=== PATIENT | female | born 1980 | race Caucasian/White ===

== ENCOUNTER 2017-08-26 20:32 | Inpatient (IN) | payer BC ==
--- NOTE | 2017-08-26 21:11 | EDM.PDOC ---
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 She states that she took ibuprofen, and her pain resolved. It recurred mildly on , 08/24/2017, then more severely on Monday, 2016. She again took ibuprofen, this time to no effect. The pain has continued. She took more ibuprofen today, again with no effect. She states that the pain is only slightly present if she remains perfectly still, worse with any movement. She has had chills, but no fever, nausea, emesis, or constipation. She reports urinary urgency, but no dysuria or frequency. She states that she has had the exact same symptoms about 3 times in the past, and has previously been diagnosed with a kidney infection. She states that she has a history of ulcerative colitis, off [facility] since April, and that she is currently experiencing non-bloody diarrhea, abdominal pain, and general fatigue. The patient does not have a PCP. Her Claims Supervisor is Dr. Esteban at the [facility] [place]. Right Flank Pain Score (Numeric/FACES): 9 - Related Data Allergies Allergy/AdvReac Type Severity Reaction Status Date / Time codeine Allergy Severe Shortness Verified 08/27/17 01:27 of Breath meloxicam Allergy Severe Hives Verified 08/27/17 01:27 Home Meds: Home Meds Mesalamine [Lialda] 2 tab PO ACDINNER 07/17/15 [History] Folic Acid 5 mg PO DAILY 11/03/15 [History] Iron Polysacch/Iron Heme Polyp [Feosol Bifera 28 mg Caplet] 28 mg PO DAILY 11/02 [History] traMADol [Ultram] 50 mg PO Q6H PRN 11/03/15 [History] . [No Known Home Meds] 08/26/17 [History] Past Medical History Gastrointestinal History: Reports: Inflammatory Bowel Disease (Ulcerative colitis) - Past Surgical History GI Surgical History: Reports: Colonoscopy Social & Family History - Family History Family Medical History: Noncontributory - Tobacco Use Smoking Status *Q: Current Every Day Smoker Years of Tobacco use: 20 Packs/Tins Daily: 1 - Recreational Drug Use Recreational Drug Use: No ED ROS GENERAL - Review of Systems Review Of Systems: ROS reveals no pertinent complaints other than HPI. ED EXAM, GENERAL - Physical Exam Exam: See Below Exam Limited By: No Limitations General Appearance: Alert, WD/WN, Mild Distress (Appears uncomfortable) Ears: Normal External Exam, Hearing Grossly Normal Nose: Normal Inspection, No Blood Throat/Mouth: Normal Inspection, Normal Lips, Normal Voice, No Airway Compromise Head: Atraumatic, Normocephalic Neck: Normal Inspection, Full Range of Motion Respiratory/Chest: No Respiratory Distress, Lungs Clear, Normal Breath Sounds, No Accessory Muscle Use Cardiovascular: Normal Peripheral Pulses, Regular Rate, Rhythm, No Gallop, No JVD, No Murmur, No Rub Peripheral Pulses: 4+: Radial (L), Radial (R) GI/Abdominal: Normal Bowel Sounds, Soft, No Organomegaly, No Distention, No Abnormal Bruit, No Mass, Tender (Minimal tenderness to palpation, generalized, non-focal) (Female) Exam: Deferred Rectal (Female) Exam: Deferred Back Exam: Normal Inspection, Full Range of Motion, CVA Tenderness (R). No: CVA Tenderness (L) Extremities: Normal Inspection, Normal Range of Motion, No Pedal Edema, Normal Capillary Refill Neurological: Alert, Oriented, Normal Cognition, No Motor/Sensory Deficits Psychiatric: Normal Affect Skin Exam: Warm, Dry, Intact, Normal Color, No Rash Course - Vital Signs Last Recorded V/S: Last Vital Signs Temp 36.6 C 08/27/17 03:23 Pulse 95 08/27/17 03:23 Resp 16 08/27/17 03:23 BP 114/61 08/27/17 03:23 Pulse Ox 99 08/27/17 03:23 - Orders/Labs/Meds Orders: Active Orders 24 hr Category Date Time Status Abdomen Pelvis wo Cont [CT] Stat Exams 08/26/17 21:18 Taken C DIFFICILE BY PCR W/NAP1 [MOLEC] Stat Lab 08/26/17 23:24 Ordered Sodium Chloride 0.9% [Normal Saline] 1,000 ml Med 08/26/17 21:30 Active IV ASDIRECTED Medication Orders Acetaminophen (Tylenol) 650 mg PO Q6H PRN PRN Reason: Pain/Fever Sodium Chloride (Normal Saline) 1,000 mls @ 150 mls/hr IV ASDIRECTED [facility] Last Admin: 08/27/17 03:20 Dose: 150 mls/hr Infusion: 08/27/17 03:20 Dose: 150 mls/hr Admin: 08/26/17 21:28 Dose: 150 mls/hr Levofloxacin/Dextrose 750 mg/ (Premix) 150 mls @ 100 mls/hr IV Q24H JASS Metronidazole 500 mg/ Premix 100 mls @ 100 mls/hr IV Q8H JASS Ketorolac Tromethamine (Toradol) 15 mg IVPUSH Q6H JASS Stop: 08/28/17 22:01 Last Admin: 08/27/17 03:21 Dose: 15 mg Temazepam (Restoril) 15 mg PO BEDTIME PRN PRN Reason: Sleep Labs: Laboratory Tests 08/26/17 08/26/17 08/26/17 Range/Units 20:52 20:52 21:24 WBC 5.82 (3.98-10.04) K/mm3 RBC 4.07 (3.98-5.22) M/mm3 Hgb 11.2 (11.2-15.7) gm/L Hct 35.4 (34.1-44.9) % MCV 87.0 (79.4-94.8) fl MCH 27.5 (25.6-32.2) pg MCHC 31.6 L (32.2-35.5) g/dl RDW Std Deviation 38.6 (36.4-46.3) fL Plt Count 379 H (182-369) K/mm3 MPV 7.6 L (9.4-12.3) fl Neutrophils % (Manual) 62 H (40-60) % Band Neutrophils % 0 (0-10) % Lymphocytes % (Manual) 31 (20-40) % Atypical Lymphs % 0 % Monocytes % (Manual) 6 (2-10) % Eosinophils % (Manual) 1 (0.7-5.8) % Basophils % (Manual) 0 L (0.1-1.2) Platelet Estimate Adequate Plt Morphology Comment Normal Poikilocytosis 1+ slight Anisocytosis 1+ slight RBC Morph Comment Not Reportable Sodium (136-145) mEq/L Potassium (3.5-5.1) mEq/L Chloride (98-107) mEq/L Carbon Dioxide (21-32) mEq/L Anion Gap (5-15) BUN (7-18) mg/dL Creatinine (0.55-1.02) mg/dL Est Cr Clr Drug Dosing mL/min Estimated GFR (MDRD) (>60) mL/min BUN/Creatinine Ratio (14-18) Glucose (74-106) mg/dL Calcium (8.5-10.1) mg/dL Total Bilirubin (0.2-1.0) mg/dL AST (15-37) U/L ALT (14-59) U/L Alkaline Phosphatase (46-116) U/L Total Protein (6.4-8.2) g/dl Albumin (3.4-5.0) g/dl Globulin gm/dL Albumin/Globulin Ratio (1-2) Urine Color Yellow (Yellow) Urine Appearance Clear (Clear) Urine pH 6.0 (5.0-8.0) Ur Specific [place] > or = 1.030 (1.005-1.030) Urine Protein 1+ H (Negative) Urine Glucose (UA) Negative (Negative) Urine Ketones Negative (Negative) Urine Occult Blood 1+ H (Negative) Urine Nitrite Negative (Negative) Urine Bilirubin Negative (Negative) Urine Urobilinogen 1.0 (0.2-1.0) Ur Leukocyte Esterase Negative (Negative) Urine RBC 0-5 (0-5) /hpf Urine WBC 0-5 (0-5) /hpf Ur Epithelial Cells 0-5 (0-5) /hpf Calcium Oxalate Crystal Moderate H (NONE) Urine Bacteria Few (FEW) /hpf Urine Mucus Few (FEW) /hpf Urine HCG, Qual Negative (NEGATIVE) 08/26/17 Range/Units 21:24 WBC (3.98-10.04) K/mm3 RBC (3.98-5.22) M/mm3 Hgb (11.2-15.7) gm/L Hct (34.1-44.9) % MCV (79.4-94.8) fl MCH (25.6-32.2) pg MCHC (32.2-35.5) g/dl RDW Std Deviation (36.4-46.3) fL Plt Count (182-369) K/mm3 MPV (9.4-12.3) fl Neutrophils % (Manual) (40-60) % Band Neutrophils % (0-10) % Lymphocytes % (Manual) (20-40) % Atypical Lymphs % % Monocytes % (Manual) (2-10) % Eosinophils % (Manual) (0.7-5.8) % Basophils % (Manual) (0.1-1.2) Platelet Estimate Plt Morphology Comment Poikilocytosis Anisocytosis RBC Morph Comment Sodium 140 (136-145) mEq/L Potassium 3.5 (3.5-5.1) mEq/L Chloride 105 (98-107) mEq/L Carbon Dioxide 26 (21-32) mEq/L Anion Gap 12.5 (5-15) BUN 9 (7-18) mg/dL Creatinine 0.9 (0.55-1.02) mg/dL Est Cr Clr Drug Dosing 73.19 mL/min Estimated GFR (MDRD) > 60 (>60) mL/min BUN/Creatinine Ratio 10.0 L (14-18) Glucose 111 H (74-106) mg/dL Calcium 8.4 L (8.5-10.1) mg/dL Total Bilirubin 0.2 (0.2-1.0) mg/dL AST 8 L (15-37) U/L ALT 11 L (14-59) U/L Alkaline Phosphatase 49 (46-116) U/L Total Protein 7.2 (6.4-8.2) g/dl Albumin 2.4 L (3.4-5.0) g/dl Globulin 4.8 gm/dL Albumin/Globulin Ratio 0.5 L (1-2) Urine Color (Yellow) Urine Appearance (Clear) Urine pH (5.0-8.0) Ur Specific [place] (1.005-1.030) Urine Protein (Negative) Urine Glucose (UA) (Negative) Urine Ketones (Negative) Urine Occult Blood (Negative) Urine Nitrite (Negative) Urine Bilirubin (Negative) Urine Urobilinogen (0.2-1.0) Ur Leukocyte Esterase (Negative) Urine RBC (0-5) /hpf Urine WBC (0-5) /hpf Ur Epithelial Cells (0-5) /hpf Calcium Oxalate Crystal (NONE) Urine Bacteria (FEW) /hpf Urine Mucus (FEW) /hpf Urine HCG, Qual (NEGATIVE) Meds: Medications Generic Name Dose Route Start Last Admin Trade Name Monica PRN Reason Stop Dose Admin Acetaminophen 650 mg 08/27/17 01:17 Tylenol PO Q6H PRN Pain/Fever Sodium Chloride 1,000 mls @ 150 mls/hr 08/26/17 21:30 08/27/17 03:20 Normal Saline IV 150 mls/hr ASDIRECTED JASS Administration Levofloxacin/Dextrose 750 mg/ 150 mls @ 100 mls/hr 08/27/17 18:00 Premix IV Q24H JASS Metronidazole 500 mg/ Premix 100 mls @ 100 mls/hr 08/27/17 08:00 IV Q8H JASS Ketorolac Tromethamine 15 mg 08/27/17 04:00 08/27/17 03:21 Toradol IVPUSH 08/28/17 22:01 15 mg Q6H JASS Administration Temazepam 15 mg 08/27/17 01:16 Restoril PO BEDTIME PRN Sleep Discontinued Medications Generic Name Dose Route Start Last Admin Trade Name Monica PRN Reason Stop Dose Admin Levofloxacin/Dextrose 750 mg/ 150 mls @ 100 mls/hr 08/26/17 23:33 08/26/17 23 :39 Premix IV 08/27/17 01:02 100 mls/hr ONETIME ONE Administration Metronidazole 500 mg/ Premix 100 mls @ 100 mls/hr 08/26/17 23:34 08/27/17 01: 07 IV 08/27/17 00:33 100 mls/hr ONETIME ONE Administration Ketorolac Tromethamine 30 mg 08/26/17 21:20 08/26/17 21:28 Toradol IVPUSH 08/26/17 21:21 30 mg ONETIME STA Administration - Re-Assessments/Exams Free Text/Narrative Re-Assessment/Exam: 08/26/17 21:13 The patient's urinalysis is a marked will for 1+ occult blood, but 0-5 RBCs. There are 0-5 WBCs, and negative leukocyte esterase and nitrites. Few bacteria are seen. This urinalysis is not consistent with a UTI. There are moderate calcium oxalate crystals noted. 08/26/17 21:19 I discussed the urinalysis results with the patient and her boyfriend. We will proceed with a CT scan of the abdomen and pelvis without contrast, to evaluate for a ureterolith. I offered pain medication, however, the patient states that she does not like the effect of narcotics, and declined. I have ordered IV Toradol. 08/26/17 22:55 CT of the abdomen and pelvis without contrast is read by [facility] as "Circumferential mucosal thickening of the colon consistent with colitis. There is pericolonic inflammatory changes and mesenteric venous congestion. Additionally, suspected fistulous tract from the proximal descending colon to the base of the cecum. The appendix does not appear dilated however there are surrounding inflammatory changes. Scattered retroperitoneal and mesenteric lymph nodes. Free fluid in the pelvis. Findings worrisome for infectious or inflammatory process. Correlate with any history of Crohn's disease." 08/26/17 23:[address] Galvez, Claims Supervisor youth care professional for Dr. Bazzi. He recommends that we admit the patient hospital. He would like us to start her on Levaquin and Flagyl. He would like us to check a stool for C. difficile, and if negative, start the patient on IV Solu-Medrol. He would like the patient to receive IV fluid, and pain management as necessary. The above was then discussed with the patient, who is amenable to being admitted to the hospital. Case then discussed with Dr. White at 23:25, who agrees to admit the patient to telemetry. The patient meets criterion for full admission. Departure - Departure Time of Disposition: 23:31 Disposition: Admitted As Inpatient 65 Condition: Fair Clinical Impression: Ulcerative colitis with fistula - Discharge Information - My Orders Last 24 Hours: My Active Orders 08/26/17 21:18 Abdomen Pelvis wo Cont [CT] Stat 08/26/17 21:30 Sodium Chloride 0.9% [Normal Saline] 1,000 ml IV ASDIRECTED 08/26/17 23:24 C DIFFICILE BY PCR W/NAP1 [MOLEC] Stat - Assessment/Plan Last 24 Hours: My Active Orders 08/26/17 21:18 Abdomen Pelvis wo Cont [CT] Stat 08/26/17 21:30 Sodium Chloride 0.9% [Normal Saline] 1,000 ml IV ASDIRECTED 08/26/17 23:24 C DIFFICILE BY PCR W/NAP1 [MOLEC] Stat
[2017-08-26] MEDS ORDERED: Ketorolac 30 MG/ML SDV IVPUSH STA (21:20)
[2017-08-26] MEDS: Sodium Chloride 0.9% 1,000 ML IV SCH (21:28)
[2017-08-26] MEDS ORDERED: Levofloxacin/Dextrose 5%-Water 750 MG in Premix Bag 1 BAG IV ONE (23:33)
[2017-08-26] MEDS ORDERED: metroNIDAZOLE/Normal Saline 500 MG in Premix Bag 1 BAG IV ONE (23:34)
[2017-08-27] MEDS ORDERED: Temazepam 15 MG Cap PO PRN (01:16)
[2017-08-27] MEDS ORDERED: Acetaminophen 325 MG Tab PO PRN (01:17)
[2017-08-27] MEDS: Sodium Chloride 0.9% 1,000 ML IV SCH ×3 (03:20→17:24)
[2017-08-27] MEDS: Ketorolac 15 MG/ML SDV IVPUSH SCH ×4 (03:21→21:13)
[2017-08-27] MEDS ORDERED: Ondansetron 4 MG/2 ML SDV IVPUSH PRN (09:06)
--- NOTE | 2017-08-27 09:08 | PCM.HP ---
H&P History of Present Illness - General Date of Service: 08/27/17 Admit Problem/Dx: Admission Diagnosis/Problem Admission Diagnosis/Problem Ulcerative colitis Source of Information: Patient, Provider History Limitations: Reports: No Limitations - History of Present Illness Initial Comments - Free Text/Narative: 37 year old female with known history of ulcerative colitis, has been having malaise, nausea without vomiting with associated abdominal pain and right sided flank pain. She has also had chills but denies a fever. She has had non bloody diarrhea for several days to weeks. Admits to increased urinary frequency. There is also a sense of urgency. She has received a dose of Levoquin 750 mg IV once in the ED, the patient will be admitted for a UC exacerbation; a UTI work up has been unremarkable, however the UC is pending. Symptom Onset Date: 08/20/17 Duration of Symptoms: Reports: Day(s):, Getting Worse Location: Reports: Abdomen, Other (right flank pain) Severity: Moderate Improves with: Reports: Medication Worsens with: Reports: None Associated Symptoms: Reports: Malaise, Nausea/Vomiting, Weakness Right Flank Pain Score (Numeric/FACES): 9 - Related Data Allergies/Adverse Reactions: Allergies Allergy/AdvReac Type Severity Reaction Status Date / Time codeine Allergy Severe Shortness Verified 08/27/17 01:27 of Breath meloxicam Allergy Severe Hives Verified 08/27/17 01:27 Home Medications: Home Meds . 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 - Past Surgical History GI Surgical History: Reports: Colonoscopy Social & Family History - Family History Family Medical History: Noncontributory - Tobacco Use Smoking Status *Q: Current Every Day Smoker Years of Tobacco use: 20 Packs/Tins Daily: 1 Used Tobacco, but Quit: No Second Hand Smoke Exposure: No - Caffeine Use Caffeine Use: Reports: Coffee, Soda Other Caffeine Use: 2 cups coffee everyday and 3 12 oz cans of pop a day - Alcohol Use Days Per Week of Alcohol Use: 0 (occasionally) - Recreational Drug Use Recreational Drug Use: No Drug Use in Last 12 Months: No Recreational Drug Type: Reports: Other (see below) H&P Review of Systems - Review of Systems: Review Of Systems: See Below General: Reports: Malaise, Weakness, Decreased Appetite HEENT: Reports: No Symptoms Pulmonary: Reports: No Symptoms Cardiovascular: Reports: No Symptoms Gastrointestinal: Reports: Abdominal Pain, Decreased Appetite, Nausea Genitourinary: Reports: Flank Pain (right) Musculoskeletal: Reports: No Symptoms Skin: Reports: No Symptoms Psychiatric: Reports: No Symptoms Neurological: Reports: No Symptoms Hematologic/Lymphatic: Reports: No Symptoms Immunologic: Reports: No Symptoms Exam - Exam Exam: See Below - Vital Signs Vital Signs: Last Vital Signs Temp 36.8 C 08/27/17 08:03 Pulse 81 08/27/17 08:03 Resp 22 H 08/27/17 08:03 BP 102/57 L 08/27/17 08:03 Pulse Ox 98 08/27/17 08:03 Weight: 70.624 kg - Exam Quality Assessment: DVT Prophylaxis General: Alert, Oriented, Cooperative HEENT: Conjunctiva Clear, EOMI, Nares Patent, Normal Nasal Septum, Pupils Equal , Pupils Reactive, PERRLA Neck: Supple, Trachea Midline Lungs: Normal Respiratory Effort Cardiovascular: Regular Rate, Regular Rhythm GI/Abdominal Exam: Normal Bowel Sounds, Soft, No Organomegaly, No Distention, Tender (difuse) (Female) Exam: Deferred Rectal (Female) Exam: Deferred Back Exam: Normal Inspection Extremities: Normal Inspection, Normal Range of Motion Skin: Warm Neurological: Cranial Nerves Intact Neuro Extensive - Mental Status: Alert, Oriented x3 Neuro Extensive - Motor, Sensory, Reflexes: CN II-XII Intact Psychiatric: Alert, Normal Affect, Normal Mood - Patient Data Lab Results Last 24 hrs: Laboratory Results - last 24 hr 08/27/17 08/27/17 Range/Units 05:59 05:59 WBC 4.84 (3.98-10.04) K/mm3 RBC 3.38 L (3.98-5.22) M/mm3 Hgb 9.3 L (11.2-15.7) gm/L Hct 29.7 L (34.1-44.9) % MCV 87.9 (79.4-94.8) fl MCH 27.5 (25.6-32.2) pg MCHC 31.3 L (32.2-35.5) g/dl RDW Std Deviation 38.9 (36.4-46.3) fL Plt Count 302 (182-369) K/mm3 MPV 7.9 L (9.4-12.3) fl Neut % (Auto) 52.3 (34.0-71.1) % Lymph % (Auto) 28.3 (19.3-51.7) % [place] % (Auto) 15.5 H (4.7-12.5) % Eos % (Auto) 3.3 (0.7-5.8) Baso % (Auto) 0.2 (0.1-1.2) % Neut # (Auto) 2.53 (1.56-6.13) K/mm3 Lymph # (Auto) 1.37 (1.18-3.74) K/mm3 [place] # (Auto) 0.75 H (0.24-0.36) K/mm3 Eos # (Auto) 0.16 (0.04-0.36) K/mm3 Baso # (Auto) 0.01 (0.01-0.08) K/mm3 Manual Slide Review Abnormal smear Sodium 142 (136-145) mEq/L Potassium 3.3 L (3.5-5.1) mEq/L Chloride 109 H (98-107) mEq/L Carbon Dioxide 23 (21-32) mEq/L Anion Gap 13.3 (5-15) BUN 8 (7-18) mg/dL Creatinine 0.8 (0.55-1.02) mg/dL Est Cr Clr Drug Dosing 82.33 mL/min Estimated GFR (MDRD) > 60 (>60) mL/min BUN/Creatinine Ratio 10.0 L (14-18) Glucose 94 (74-106) mg/dL Calcium 7.6 L (8.5-10.1) mg/dL Magnesium 1.8 (1.8-2.4) mg/dl C-Reactive Protein 7.3 H* (<1.0) mg/dL Result Diagrams: 08/28/17 06:06 08/28/17 06:06 *Q Meaningful Use (ADM) - VTE *Q VTE Criteria *Q: - Stroke *Q Stroke Criteria *Q: - AMI *Q AMI Criteria *Q: - Problem List (1) Ulcerative colitis with fistula SNOMED Code(s): 57084429 ICD Code: K51.913 - ULCERATIVE COLITIS, UNSPECIFIED WITH FISTULA Status: Acute Current Visit: Yes (2) Anemia SNOMED Code(s): 794692810 ICD Code: D64.9 - ANEMIA, UNSPECIFIED Status: Acute Current Visit: No (3) Iron deficiency SNOMED Code(s): 13496262 ICD Code: E61.1 - IRON DEFICIENCY Status: Acute Current Visit: No (4) Tobacco abuse SNOMED Code(s): 173965418 ICD Code: Z72.0 - TOBACCO USE Status: Acute Current Visit: No Problem List Initiated/Reviewed/Updated: Yes Orders Last 24hrs: Active Orders 24 hr Category Date Time Status Admission Status [Patient Status] [ADT] Routine ADT 08/27/17 01:00 Active Activity as Tolerated [RC] .Routine Care 08/27/17 00:52 Active Clear Liquid Diet [DIET] Diet 08/27/17 Breakfast Active C DIFFICILE BY PCR W/NAP1 [MOLEC] Routine Lab 08/27/17 07:31 Uncollected Acetaminophen [Tylenol] Med 08/27/17 01:17 Active 650 mg PO Q6H PRN Ketorolac [Toradol] Med 08/27/17 04:00 Active 15 mg IVPUSH Q6H Levofloxacin/Dextrose 5%-Water [Levaquin in D5W 750 MG/ Med 08/27/17 18:00 Active 150 ML] 750 mg Premix Bag 1 bag IV Q24H Ondansetron [Zofran] Med 08/27/17 09:06 Ordered 4 mg IVPUSH Q8H PRN Pantoprazole [ProTONIX] Med 08/27/17 16:00 Ordered 40 mg PO BIDAC Temazepam [Restoril] Med 08/27/17 01:16 Active 15 mg PO BEDTIME PRN metroNIDAZOLE/Normal Saline [Flagyl 500 MG in NS 100 ML Med 08/27/17 08:00 Active ] 500 mg Premix Bag 1 bag IV Q8H Code Status [Resuscitation Status] Routine Resus Stat 08/27/17 00:51 Ordered Medication Orders Acetaminophen (Tylenol) 650 mg PO Q6H PRN PRN Reason: Pain/Fever Sodium Chloride (Normal Saline) 1,000 mls @ 150 mls/hr IV ASDIRECTED JASS Last Admin: 12/31/17 03:20 Dose: 150 mls/hr Infusion: 08/27/17 03:20 Dose: 150 mls/hr Admin: 08/26/17 21:28 Dose: 150 mls/hr Levofloxacin/Dextrose 750 mg/ (Premix) 150 mls @ 100 mls/hr IV Q24H [facility] Metronidazole 500 mg/ Premix 100 mls @ 100 mls/hr IV Q8H [facility] Ketorolac Tromethamine (Toradol) 15 mg IVPUSH Q6H [facility] Stop: 08/28/17 22:01 Last Admin: 08/27/17 03:21 Dose: 15 mg Ondansetron HCl (Zofran) 4 mg IVPUSH Q8H PRN PRN Reason: Nausea/Vomiting Pantoprazole Sodium (Protonix) 40 mg PO BIDAC JASS Temazepam (Restoril) 15 mg PO BEDTIME PRN PRN Reason: Sleep Assessment/Plan Comment:: Impression: Abdominal pain with ulcerative colitis flare; atypical presentation with right flank pain Dehydration Chronic History of anal skin tags Iron deficiency Tobacco abuse Plan: IVF Levoquin/Flagyl Solumedrol after C Diff results are confirmed negative Home meds Daily labs DVT/GI prophylaxis
[2017-08-27] MEDS ORDERED: Magnesium Sulfate/Water 2 GM in Premix Bag 1 BAG IV ONE (09:09)
[2017-08-27] MEDS: metroNIDAZOLE/Normal Saline 500 MG in Premix Bag 1 BAG IV SCH ×2 (09:12→16:10)
[2017-08-27] MEDS ORDERED: traMADol 50 MG Tab PO PRN (09:13)
--- NOTE | 2017-08-27 14:52 | CT ---
CT abdomen and pelvis Technique: Multiple axial sections were obtained from above the kidneys inferiorly through the pubic symphysis. Intravenous and oral contrast not utilized. Study has been performed as a ureteral stone protocol. Comparison: No prior abdominal imaging. Findings: Kidneys show no abnormal calcifications. Ureters show no dilatation. No abnormal calcifications are seen along the course of the ureters. Visualized lung bases are clear. Visualized portions of the noncontrast liver and spleen appear within normal limits. Adrenal glands show no nodule. Pancreas is within normal limits. Gallbladder is contracted and shows no larger calcified gallstones. Aorta shows no aneurysmal dilatation. Diffuse bowel wall thickening seen within the descending colon. Diffuse inflammatory change seen in this area of bowel wall thickening. There is soft tissue density extending to the cecum which could represent a fistulous track. This area of inflammation is next to the area of the appendix but findings are felt to be more colonic in nature rather than representing primary appendicitis although secondary appendicitis could be present. No retroperitoneal adenopathy is seen. No other mesenteric abnormalities are seen. No other pelvic abnormality is seen. Minimal amount of free fluid is seen within the right side of the pelvis. Bone window settings were reviewed which show sclerosis and old erosions within the left side sacroiliac joint. Lesser sclerosis noted within the right sacroiliac joint. Impression: 1. Inflammatory change around the descending colon. Area of soft tissue density extends to the cecum. Findings most likely due to Crohn's disease or other inflammatory bowel disease with possible fistula to the cecum. This area of inflammation near the cecum is next to the appendix. Primary appendicitis felt not to be present but secondary appendicitis from the Crohn's involvement is possible. 2. Minimal fluid within the right side of the pelvis. 3. No renal calculi, ureteral dilatation or ureteral stone is seen. Diagnostic code #5 I agree with preliminary report issued by [facility] ([facility] report finalized on 08/26/17, 11:47 PM Central Time)
[2017-08-27] MEDS: Pantoprazole 40 MG Tab.CR PO SCH (16:10)
[2017-08-27] MEDS: Mesalamine 800 MG Tab.CR PO SCH ×2 (16:10→21:08)
[2017-08-27] MEDS: Levofloxacin/Dextrose 5%-Water 750 MG in Premix Bag 1 BAG IV SCH (18:27)
[2017-08-27] MEDS: methylPREDNISolone Sodium Succinate 125 MG/2 ML SDV IVPUSH SCH (18:56)
[2017-08-27] MEDS: Folic Acid 1 MG Tab PO SCH (21:08)
[2017-08-28] MEDS: Sodium Chloride 0.9% 1,000 ML IV SCH ×2 (00:09→06:32)
[2017-08-28] MEDS: metroNIDAZOLE/Normal Saline 500 MG in Premix Bag 1 BAG IV SCH ×3 (00:09→15:17)
[2017-08-28] MEDS: methylPREDNISolone Sodium Succinate 125 MG/2 ML SDV IVPUSH SCH ×5 (00:10→20:18)
[2017-08-28] MEDS: Ketorolac 15 MG/ML SDV IVPUSH SCH ×4 (05:00→21:16)
[2017-08-28] MEDS: Pantoprazole 40 MG Tab.CR PO SCH ×2 (05:00→15:17)
[2017-08-28] MEDS: Mesalamine 800 MG Tab.CR PO SCH ×3 (08:44→21:14)
[2017-08-28] MEDS: Iron Polysaccharides Complex 150 MG Cap PO SCH (08:45)
[2017-08-28] MEDS: Nicotine 14 MG/24 Hr Patch TRDERM SCH (11:42)
--- NOTE | 2017-08-28 13:49 | PCM.PN ---
- General Info Date of Service: 08/28/17 Functional Status: Reports: Pain Controlled, Tolerating Diet (soft), Ambulating , Urinating - Review of Systems General: Reports: No Symptoms HEENT: Reports: No Symptoms Pulmonary: Reports: No Symptoms Cardiovascular: Reports: No Symptoms Gastrointestinal: Reports: No Symptoms Genitourinary: Reports: No Symptoms Musculoskeletal: Reports: No Symptoms Skin: Reports: No Symptoms Neurological: Reports: No Symptoms Psychiatric: Reports: No Symptoms - Patient Data Vitals - Most Recent: Last Vital Signs Temp 36.6 C 08/28/17 12:04 Pulse 72 08/28/17 12:04 Resp 24 H 08/28/17 12:04 BP 114/71 08/28/17 12:04 Pulse Ox 98 08/28/17 12:04 Weight - Most Recent: 70.624 kg I&O - Last 24 Hours: Intake & Output 08/27/17 08/28/17 08/28/17 22:59 06:59 14:59 Intake Total 2837 2311 120 Output Total 303 800 Balance 2534 1511 120 Lab Results Last 24 Hours: Laboratory Results - last 24 hr 08/28/17 08/28/17 08/28/17 Range/Units 06:06 06:06 06:06 WBC 3.02 L (3.98-10.04) K/mm3 RBC 3.64 L (3.98-5.22) M/mm3 Hgb 9.9 L (11.2-15.7) gm/L Hct 31.9 L (34.1-44.9) % MCV 87.6 (79.4-94.8) fl MCH 27.2 (25.6-32.2) pg MCHC 31.0 L (32.2-35.5) g/dl RDW Std Deviation 38.7 (36.4-46.3) fL Plt Count 285 (182-369) K/mm3 MPV 8.2 L (9.4-12.3) fl Neut % (Auto) 75.6 H (34.0-71.1) % Lymph % (Auto) 22.8 (19.3-51.7) % [place] % (Auto) 1.3 L (4.7-12.5) % Eos % (Auto) 0 L (0.7-5.8) Baso % (Auto) 0.0 L (0.1-1.2) % Neut # (Auto) 2.28 (1.56-6.13) K/mm3 Lymph # (Auto) 0.69 L (1.18-3.74) K/mm3 [place] # (Auto) 0.04 L (0.24-0.36) K/mm3 Eos # (Auto) 0.00 L (0.04-0.36) K/mm3 Baso # (Auto) 0.00 L (0.01-0.08) K/mm3 Sodium 143 (136-145) mEq/L Potassium 4.0 (3.5-5.1) mEq/L Chloride 110 H (98-107) mEq/L Carbon Dioxide 22 (21-32) mEq/L Anion Gap 15.0 (5-15) BUN 7 (7-18) mg/dL Creatinine 0.7 (0.55-1.02) mg/dL Est Cr Clr Drug Dosing 94.10 mL/min Estimated GFR (MDRD) > 60 (>60) mL/min BUN/Creatinine Ratio 10.0 L (14-18) Glucose 177 H (74-106) mg/dL Calcium 7.6 L (8.5-10.1) mg/dL Magnesium 2.2 (1.8-2.4) mg/dl Ferritin 92 (8-252) ng/ml C-Reactive Protein 10.0 H* (<1.0) mg/dL Med Orders - Current: Current Medications Acetaminophen (Tylenol) 650 mg PO Q6H PRN PRN Reason: Pain/Fever Folic Acid (Folic Acid) 5 mg PO BEDTIME [facility] Last Admin: 08/27/17 21:08 Dose: 5 mg Levofloxacin/Dextrose 750 mg/ (Premix) 150 mls @ 100 mls/hr IV Q24H [facility] Last Admin: 08/27/17 18:27 Dose: 100 mls/hr Metronidazole 500 mg/ Premix 100 mls @ 100 mls/hr IV Q8H [facility] Last Admin: 08/28/17 08:45 Dose: 100 mls/hr Ketorolac Tromethamine (Toradol) 15 mg IVPUSH Q6H [facility] Stop: 08/28/17 22:01 Last Admin: 08/28/17 11:38 Dose: 15 mg Mesalamine (Asacol Hd) 800 mg PO TID [facility] Last Admin: 08/28/17 08:44 Dose: 800 mg Methylprednisolone Sodium Succinate (Solu-Medrol) 125 mg IVPUSH Q6H [facility] Last Admin: 08/28/17 06:29 Dose: 125 mg Miscellaneous Information (Remove Patch) 1 ea TRDERM DAILY [facility] Nicotine (Habitrol) 14 mg TRDERM DAILY [facility] Last Admin: 08/28/17 11:42 Dose: 14 mg Pantoprazole Sodium (Protonix) 40 mg PO BIDAC [facility] Last Admin: 08/28/17 05:00 Dose: 40 mg Polysaccharide Iron Complex (Ferrex 150) 150 mg PO DAILY [facility] Last Admin: 08/28/17 08:45 Dose: 150 mg Temazepam (Restoril) 15 mg PO BEDTIME PRN PRN Reason: Sleep Tramadol HCl (Ultram) 50 mg PO Q8H PRN PRN Reason: Pain (moderate 4-6) Discontinued Medications Sodium Chloride (Normal Saline) 1,000 mls @ 150 mls/hr IV ASDIRECTED [facility] Last Admin: 08/28/17 06:32 Dose: 150 mls/hr Levofloxacin/Dextrose 750 mg/ (Premix) 150 mls @ 100 mls/hr IV ONETIME ONE Stop: 08/27/17 01:02 Last Admin: 08/26/17 23:39 Dose: 100 mls/hr Metronidazole 500 mg/ Premix 100 mls @ 100 mls/hr IV ONETIME ONE Stop: 08/27/17 00:33 Last Admin: 08/27/17 01:07 Dose: 100 mls/hr Magnesium Sulfate 2 gm/ Premix 50 mls @ 25 mls/hr IV ONETIME ONE Stop: 08/27/17 11:08 Last Admin: 08/27/17 10:20 Dose: 25 mls/hr Ketorolac Tromethamine (Toradol) 30 mg IVPUSH ONETIME STA Stop: 08/26/17 21:21 Last Admin: 08/26/17 21:28 Dose: 30 mg Ondansetron HCl (Zofran) 4 mg IVPUSH Q8H PRN PRN Reason: Nausea/Vomiting - Exam Quality Assessment: DVT Prophylaxis General: Alert, Oriented, Cooperative, No Acute Distress HEENT: Pupils Equal, Pupils Reactive, EOMI Neck: Supple, Trachea Midline, No JVD Lungs: Normal Respiratory Effort Cardiovascular: Regular Rate, Regular Rhythm GI/Abdominal Exam: Normal Bowel Sounds, Soft, Non-Tender, No Organomegaly, No Distention (Female) Exam: Deferred Back Exam: Normal Inspection Extremities: Normal Inspection, Normal Range of Motion Skin: Warm Neurological: No New Focal Deficit, Normal Gait, Normal Speech Psy/Mental Status: Alert, Normal Affect, Normal Mood - Problem List & Annotations (1) Ulcerative colitis with fistula SNOMED Code(s): 85361169 Code(s): K51.913 - ULCERATIVE COLITIS, UNSPECIFIED WITH FISTULA Status: Acute Current Visit: Yes (2) Anemia SNOMED Code(s): 701869977 Code(s): D64.9 - ANEMIA, UNSPECIFIED Status: Acute Current Visit: No (3) Iron deficiency SNOMED Code(s): 60665695 Code(s): E61.1 - IRON DEFICIENCY Status: Acute Current Visit: No (4) Tobacco abuse SNOMED Code(s): 369867124 Code(s): Z72.0 - TOBACCO USE Status: Acute Current Visit: No - Problem List Review Problem List Initiated/Reviewed/Updated: Yes - My Orders Last 24 Hours: My Active Orders 08/28/17 09:00 Iron Polysaccharides Complex [Ferrex 150] 150 mg PO DAILY 08/28/17 11:00 Nicotine [Habitrol] 14 mg TRDERM DAILY 08/29/17 05:00 BASIC METABOLIC PANEL,BMP [CHEM] DAILY CBC WITH AUTO DIFF [HEME] DAILY CRP [C-REACTIVE PROTEIN] [CHEM] DAILY MAGNESIUM [CHEM] DAILY 08/29/17 09:00 Remove Patch 1 ea TRDERM DAILY 08/30/17 05:00 BASIC METABOLIC PANEL,BMP [CHEM] DAILY CBC WITH AUTO DIFF [HEME] DAILY CRP [C-REACTIVE PROTEIN] [CHEM] DAILY MAGNESIUM [CHEM] DAILY 08/31/17 05:00 BASIC METABOLIC PANEL,BMP [CHEM] DAILY CBC WITH AUTO DIFF [HEME] DAILY CRP [C-REACTIVE PROTEIN] [CHEM] DAILY MAGNESIUM [CHEM] DAILY 08/27/17 15:00 Mesalamine [Asacol HD] 800 mg PO TID 08/27/17 16:00 Pantoprazole [ProTONIX] 40 mg PO BIDAC 08/27/17 18:00 Levofloxacin/Dextrose 5%-Water [Levaquin in D5W 750 MG/150 ML] 750 mg Premix Bag 1 bag IV Q24H 08/27/17 19:00 methylPREDNISolone Sod Succ [Solu-MEDROL] 125 mg IVPUSH Q6H 08/27/17 21:00 Folic Acid 5 mg PO BEDTIME - Plan Plan:: Impression: Abdominal pain with ulcerative colitis flare; atypical presentation with right flank pain Dehydration Chronic History of anal skin tags Iron deficiency Tobacco abuse/dependence Plan: IVF Levoquin/Flagyl Solumedrol--->taper dose, start prednisone Home meds Daily labs DVT/GI prophylaxis DC 08/29/17-->advance to regular diet; taper steroids; home ATB; follow up with Dr Esteban; has been loss to follow up, will need GI appt.
[2017-08-28] MEDS: Levofloxacin/Dextrose 5%-Water 750 MG in Premix Bag 1 BAG IV SCH (20:17)
[2017-08-28] MEDS: Remove Patch*NICOTINE PATCH TRDERM SCH (20:31)
[2017-08-28] MEDS: Folic Acid 1 MG Tab PO SCH (21:15)
[2017-08-29] MEDS: methylPREDNISolone Sodium Succinate 125 MG/2 ML SDV IVPUSH SCH ×2 (00:40→06:27)
[2017-08-29] MEDS: metroNIDAZOLE/Normal Saline 500 MG in Premix Bag 1 BAG IV SCH ×2 (00:42→08:31)
[2017-08-29] MEDS: Pantoprazole 40 MG Tab.CR PO SCH (06:27)
[2017-08-29] MEDS ORDERED: Docusate Sodium 100 MG Cap PO ONE (08:18)
[2017-08-29] MEDS ORDERED: Magnesium Hydroxide 400 MG/5 ML Susp 30 ML Cup PO ONE (08:18)
[2017-08-29] MEDS: Mesalamine 800 MG Tab.CR PO SCH (08:31)
[2017-08-29] MEDS: Iron Polysaccharides Complex 150 MG Cap PO SCH (08:31)
--- NOTE | 2017-08-29 08:31 | PCM.DCSUM1 ---
Discharge Summary - Hospital Course Free Text/Narrative:: The patient states that she developed right flank pain early this week, around 08/21/2017. She states that she took ibuprofen, and her pain resolved. It recurred mildly on , 08/24/2017, then more severely on Monday, 2016. She again took ibuprofen, this time to no effect. The pain has continued. She took more ibuprofen today, again with no effect. She states that the pain is only slightly present if she remains perfectly still, worse with any movement. She has had chills, but no fever, nausea, emesis, or constipation. She reports urinary urgency, but no dysuria or frequency. She states that she has had the exact same symptoms about 3 times in the past, and has previously been diagnosed with a kidney infection. She states that she has a history of ulcerative colitis, off [facility] since April, and that she is currently experiencing non-bloody diarrhea, abdominal pain, and general fatigue x 5+ days. No fevers. The patient does not have a PCP. Her Registered Nurse Midwife is Dr[facility]. ED evaluation was with CT scan of abd/pelvis showing diffuse bowel wall thickening of the descending colon, soft tissue soft tissue density of extending to the cecum which could represent a fistulous track. Hospitalist service was consulted for admission for acute flare of ulcerative colitis with flank pain. Patient was treated with IV antibiotics Flagyl, Levaquin, IV Solu-Medrol. She was started on mesalamine 800 mg 3 times a day. CRP at the highest was 10.0 down to 4.7 on day of discharge. White count was 6 at highest 3.02 at lowest. Hemoglobin was low but stable between 9.3 and 10.0. C. difficile was obtained and is negative. She'll be discharged home today with PO antibiotics Levaquin and Flagyl 7 days, Probiotic. Prednisone taper, mesalamine 800 mg TID and instructions to follow-up with her dietary tech as soon as possible. Smoking cessation advised, nicotine patch rx'd. She is also to establish care with a primary care provider as soon as possible with recheck in 5-7 days. - Discharge Data Discharge Date: 08/29/17 (admit date 08/26/17) Discharge Disposition: Home, Self-Care 01 Condition: Good - Discharge Diagnosis/Problem(s) (1) Ulcerative colitis with fistula SNOMED Code(s): 25535105 ICD Code: K51.913 - ULCERATIVE COLITIS, UNSPECIFIED WITH FISTULA Status: Chronic Priority: Medium Current Visit: Yes Qualifiers: Ulcerative colitis location: other ulcerative colitis Qualified Code(s): K51.813 - Other ulcerative colitis with fistula (2) Anemia SNOMED Code(s): 905138570 ICD Code: D64.9 - ANEMIA, UNSPECIFIED Status: Chronic Priority: Medium Current Visit: Yes Qualifiers: Anemia type: unspecified type Qualified Code(s): D64.9 - Anemia, unspecified (3) Tobacco abuse SNOMED Code(s): 138113919 ICD Code: Z72.0 - TOBACCO USE Status: Chronic Priority: Medium Current Visit: Yes - Patient Summary/Data Operative Procedure(s) Performed: None Complications: None Consults: None Labs Pending at D/C: None Recommended Follow-up Testing/Procedures: Follow up with GI as soon as possible Follow up/establish care with PCP within one week of discharge. Take all medications as prescribed; push fluids, minimal caffeine. Take Mesalamine and prednisone with food [place] diet, slowly advance as tolerated Green leafy vegatables or red meats for iron deficiency anemia; if iron supplement is causing constipation you can decrease it to every other day. Planned Operative Procedure(s) after DC: None Hospital Course: As above - Patient Instructions Diet: Usual Diet as Tolerated ([place] foods and slowly advance) Activity: As Tolerated Showering/Bathing: May Shower Notify Provider of: Fever, Increased Pain, Nausea and/or Vomiting - Discharge Plan Prescriptions/Med Rec: Bifidobacter. Bifidum/B.Longum [Florajen Bifidoblend] 460 mg PO DAILY #30 capsule Folic Acid 5 mg PO BEDTIME #30 tablet Iron Polysaccharides Complex [Ferrex 150] 150 mg PO DAILY #30 cap Levofloxacin [Levaquin] 500 mg PO Q24H 7 Days #7 tablet Mesalamine 800 mg PO TID #90 tablet. metroNIDAZOLE [Flagyl] 500 mg PO Q8H 7 Days #21 tablet Nicotine [Habitrol] 14 mg TRDERM DAILY #30 patch Pantoprazole [ProTONIX] 40 mg PO BIDAC #60 tab.cr Prednisone [IJD: Prednisone] 10 mg PO DAILY #30 tab Home Medications: Home Meds Bifidobacter. Bifidum/B.Longum [Florajen Bifidoblend] 460 mg PO DAILY #30 capsule 08/29/17 [Rx] Folic Acid 5 mg PO BEDTIME #30 tablet 08/29/17 [Rx] Iron Polysaccharides Complex [Ferrex 150] 150 mg PO DAILY #30 cap 08/29/17 [Rx] Levofloxacin [Levaquin] 500 mg PO Q24H 7 Days #7 tablet 08/29/17 [Rx] Mesalamine 800 mg PO TID #90 tablet. 08/29/17 [Rx] Nicotine [Habitrol] 14 mg TRDERM DAILY #30 patch 08/29/17 [Rx] Pantoprazole [ProTONIX] 40 mg PO BIDAC #60 tab.cr 08/29/17 [Rx] Prednisone [IJD: Prednisone] 10 mg PO DAILY #30 tab 08/29/17 [Rx] metroNIDAZOLE [Flagyl] 500 mg PO Q8H 7 Days #21 tablet 08/29/17 [Rx] Patient Handouts: Anemia, Nonspecific, Smoking Cessation, Tips for Success, Ulcerative Colitis, Adult - Discharge Summary/Plan Comment DC Time >30 min.: Yes (40 min) - General Info Date of Service: 08/29/17 Admission Dx/Problem (Free Text: Admission Diagnosis/Problem Admission Diagnosis/Problem Ulcerative colitis Functional Status: Reports: Pain Controlled, Tolerating Diet, Ambulating, Urinating. Denies: New Symptoms - Review of Systems General: Reports: No Symptoms HEENT: Reports: No Symptoms Pulmonary: Reports: No Symptoms Cardiovascular: Reports: No Symptoms Gastrointestinal: Reports: No Symptoms, Abdominal Pain (improved to resolving). Denies: Diarrhea, Hematochezia, Nausea, Vomiting Genitourinary: Reports: No Symptoms Musculoskeletal: Reports: No Symptoms Skin: Reports: No Symptoms Neurological: Reports: No Symptoms Psychiatric: Reports: No Symptoms - Patient Data Vitals - Most Recent: Last Vital Signs Temp 98.6 F 08/29/17 04:15 Pulse 53 L 08/29/17 04:15 Resp 16 08/29/17 04:15 BP 121/69 08/29/17 04:15 Pulse Ox 98 08/29/17 04:15 Weight - Most Recent: 166 lb 12.8 oz I&O - Last 24 hours: Intake & Output 08/28/17 08/29/1708/29/18 22:59 06:59 14:59 Intake Total 2039 1799 Balance 2039 1799 Lab Results - Last 24 hrs: Laboratory Results - last 24 hr 08/29/17 08/29/17 Range/Units 05:55 05:55 WBC 6.18 (3.98-10.04) K/mm3 RBC 3.46 L (3.98-5.22) M/mm3 Hgb 9.3 L (11.2-15.7) gm/L Hct 30.1 L (34.1-44.9) % MCV 87.0 (79.4-94.8) fl MCH 26.9 (25.6-32.2) pg MCHC 30.9 L (32.2-35.5) g/dl RDW Std Deviation 38.1 (36.4-46.3) fL Plt Count 361 (182-369) K/mm3 MPV 8.4 L (9.4-12.3) fl Neut % (Auto) 79.9 H (34.0-71.1) % Lymph % (Auto) 14.6 L (19.3-51.7) % [place] % (Auto) 5.2 (4.7-12.5) % Eos % (Auto) 0 L (0.7-5.8) Baso % (Auto) 0.0 L (0.1-1.2) % Neut # (Auto) 4.94 (1.56-6.13) K/mm3 Lymph # (Auto) 0.90 L (1.18-3.74) K/mm3 [place] # (Auto) 0.32 (0.24-0.36) K/mm3 Eos # (Auto) 0.00 L (0.04-0.36) K/mm3 Baso # (Auto) 0.00 L (0.01-0.08) K/mm3 Sodium 143 (136-145) mEq/L Potassium 4.0 (3.5-5.1) mEq/L Chloride 110 H (98-107) mEq/L Carbon Dioxide 24 (21-32) mEq/L Anion Gap 13.0 (5-15) BUN 8 (7-18) mg/dL Creatinine 0.7 (0.55-1.02) mg/dL Est Cr Clr Drug Dosing 94.10 mL/min Estimated GFR (MDRD) > 60 (>60) mL/min BUN/Creatinine Ratio 11.4 L (14-18) Glucose 145 H (74-106) mg/dL Calcium 8.0 L (8.5-10.1) mg/dL Magnesium 2.1 (1.8-2.4) mg/dl C-Reactive Protein 4.7 H* (<1.0) mg/dL Med Orders - Current: Current Medications Acetaminophen (Tylenol) 650 mg PO Q6H PRN PRN Reason: Pain/Fever Folic Acid (Folic Acid) 5 mg PO BEDTIME [facility] Last Admin: 08/28/17 21:15 Dose: 5 mg Levofloxacin/Dextrose 750 mg/ (Premix) 150 mls @ 100 mls/hr IV Q24H [facility] Last Admin: 08/28/17 20:17 Dose: 100 mls/hr Metronidazole 500 mg/ Premix 100 mls @ 100 mls/hr IV Q8H [facility] Last Admin: 08/29/17 00:42 Dose: 100 mls/hr Mesalamine (Asacol Hd) 800 mg PO TID [facility] Last Admin: 08/28/17 21:14 Dose: 800 mg Methylprednisolone Sodium Succinate (Solu-Medrol) 80 mg IVPUSH Q8H [facility] Miscellaneous Information (Remove Patch) 1 ea TRDERM DAILY [facility] Last Admin: 08/28/17 20:31 Dose: 1 ea Nicotine (Habitrol) 14 mg TRDERM DAILY [facility] Last Admin: 08/28/17 11:42 Dose: 14 mg Pantoprazole Sodium (Protonix) 40 mg PO BIDAC [facility] Last Admin: 08/29/17 06:27 Dose: 40 mg Polysaccharide Iron Complex (Ferrex 150) 150 mg PO DAILY [facility] Last Admin: 08/28/17 08:45 Dose: 150 mg Temazepam (Restoril) 15 mg PO BEDTIME PRN PRN Reason: Sleep Tramadol HCl (Ultram) 50 mg PO Q8H PRN PRN Reason: Pain (moderate 4-6) Discontinued Medications Docusate Sodium (Colace) 100 mg PO ONETIME ONE Stop: 08/29/17 08:19 Sodium Chloride (Normal Saline) 1,000 mls @ 150 mls/hr IV ASDIRECTED [facility] Last Admin: 08/28/17 06:32 Dose: 150 mls/hr Levofloxacin/Dextrose 750 mg/ (Premix) 150 mls @ 100 mls/hr IV ONETIME ONE Stop: 08/27/17 01:02 Last Admin: 08/26/17 23:39 Dose: 100 mls/hr Metronidazole 500 mg/ Premix 100 mls @ 100 mls/hr IV ONETIME ONE Stop: 08/27/17 00:33 Last Admin: 08/27/17 01:07 Dose: 100 mls/hr Magnesium Sulfate 2 gm/ Premix 50 mls @ 25 mls/hr IV ONETIME ONE Stop: 08/27/17 11:08 Last Admin: 08/27/17 10:20 Dose: 25 mls/hr Ketorolac Tromethamine (Toradol) 30 mg IVPUSH ONETIME STA Stop: 08/26/17 21:21 Last Admin: 08/26/17 21:28 Dose: 30 mg Ketorolac Tromethamine (Toradol) 15 mg IVPUSH Q6H [facility] Stop: 08/28/17 22:01 Last Admin: 08/28/17 21:16 Dose: 15 mg Magnesium Hydroxide (Milk Of Magnesia) 30 ml PO ONETIME ONE Stop: 08/29/17 08:19 Methylprednisolone Sodium Succinate (Solu-Medrol) 125 mg IVPUSH Q6H [facility] Last Admin: 08/29/17 06:27 Dose: 125 mg Ondansetron HCl (Zofran) 4 mg IVPUSH Q8H PRN PRN Reason: Nausea/Vomiting - Exam Quality Assessment: Reports: DVT Prophylaxis General: Reports: Alert, Oriented, Cooperative, No Acute Distress HEENT: Reports: Pupils Equal, EOMI, Mucous Membr. Moist/[place] Neck: Reports: Supple Lungs: Reports: Clear to Auscultation, Normal Respiratory Effort Cardiovascular: Reports: Regular Rate, Regular Rhythm GI/Abdominal Exam: Normal Bowel Sounds, Soft, No Organomegaly, Tender (left side and LLQ with mild tenderness today). No: Guarding, Rigid, Rebound (Female) Exam: Deferred Rectal (Female) Exam: Deferred Extremities: Normal Inspection, No Pedal Edema, Normal Capillary Refill Neurological: Reports: No New Focal Deficit Psy/Mental Status: Reports: Alert, Normal Affect, Normal Mood *Q Meaningful Use (DIS) - VTE *Q VTE Criteria *Q: - Stroke *Q Stroke Criteria *Q: - AMI *Q AMI Criteria *Q:
[2017-08-29] MEDS: Nicotine 14 MG/24 Hr Patch TRDERM SCH (10:12)
[2017-08-29] MEDS: Remove Patch*NICOTINE PATCH TRDERM SCH (10:12)
[2017-08-29 10:26] VITALS: BP 137/72
[2017-08-29] MEDS ORDERED: Simethicone 80 MG Tab.Chew PO ONE (10:36)
[2017-08-29] MEDS ORDERED: methylPREDNISolone Sodium Succinate 40 MG/1 ML SDV IVPUSH SCH (14:00)
== END 2017-08-29 12:04 | disposition home or self-care (01) | DRG 245 ==
LOC: JD.ED 20:32 → JD.MS 23:36 → MERGE 23:36
PROVIDERS: ADMIT Internal Medicine Cardiovascular Disease; ATTEND Internal Medicine Cardiovascular Disease
DX: K51.913 Ulcerative colitis, unspecified with fistula (principal); D64.9 Anemia, unspecified; E86.0 Dehydration; E61.1 Iron deficiency; F17.210 Nicotine dependence, cigarettes, uncomplicated; Z88.8 Allergy status to other drugs, medicaments and biological substances
CPT/HCPCS: 36415; 74176; 74176-26; 80048; 80053; 81001; 81025; 82728; 83735; 85025; 86140; 87493; 96361; 96365; 96375; 99284; 99285-25; A9270-GY; J1885; J1956; J2930; J3475; J7040

== ENCOUNTER 2019-05-28 06:11 | Emergency (ER) | payer BC ==
[2019-05-28 06:20] VITALS: BP 125/82; PULSE 92
[2019-05-28] MEDS ORDERED: Albuterol/Ipratropium 3.0-0.5 MG/3 ML Neb Soln NEB ONE (06:24)
--- NOTE | 2019-05-28 06:29 | EDM.PDOC ---
ED HPI GENERAL MEDICAL PROBLEM - General Chief Complaint: Respiratory Problem Stated Complaint: COUGH Time Seen by Provider: 05/28/19 06:24 Source of Information: Reports: Patient History Limitations: Reports: No Limitations - History of Present Illness INITIAL COMMENTS - FREE TEXT/NARRATIVE: 39--year-old female presents to the ED with a one-week history of cough. Cough became very productive but she is unable to get up much phlegm over the last 4 days. Associated development of fever and chills the last 3 days as well. Increased shortness of breath and coughed most of last night. History of cigarette smoking 1 pack per day. No history of asthma. No formal diagnosis of COPD. On presentation she is afebrile. Respiratory rate is 20 with O2 sats of 95 %. She has a very sad productive sounding cough. Denies sore throat or ear ache. Decreased appetite .No nausea vomiting or diarrhea Onset: Gradual Onset Date: 05/22/19 Duration: Day(s):, Getting Worse Location: Reports: Chest (Productive cough with dyspnea.) Quality: Reports: Other Severity: Moderate (Productive sounding cough with wheeze.) Improves with: Reports: None Worsens with: Reports: Other Context: Reports: Other. Denies: Activity, Exercise, Lifting, Sick Contact, Trauma Associated Symptoms: Reports: Chest Pain ( Can't cough anything up.), Cough, cough w sputum (Grandson is sick with similar type illness.), Fever/Chills, Loss of Appetite, Malaise, Shortness of Breath. Denies: No Other Symptoms ( central chest pain from coughing so much. 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 - Related Data Allergies Allergy/AdvReac Type Severity Reaction Status Date / Time codeine Allergy Severe Shortness Verified 05/28/19 06:20 of Breath meloxicam Allergy Severe Hives Verified 05/28/19 06:20 Home Meds: Home Meds Adalimumab [Humira] 20 mg SUBCUT ASDIRECTED 05/28/19 [History] Albuterol Sulfate [Albuterol Sulfate Hfa] 8.5 gm IH Q4H #1 hfa.aer.ad 05/28/19 [ Rx] levoFLOXacin [Levaquin] 500 mg PO DAILY #8 tab 10/01/19 [Rx] Past Medical History - Past Health History Medical/Surgical History: Denies Medical/Surgical History Gastrointestinal History: Reports: Inflammatory Bowel Disease (Ulcerative colitis) Other Gastrointestinal History: UC Genitourinary History: Reports: Pyelonephritis 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 - Past Surgical History GI Surgical History: Reports: Colonoscopy Social & Family History - Family History Family Medical History: Noncontributory - Tobacco Use Smoking Status *Q: Current Every Day Smoker Years of Tobacco use: 26 Packs/Tins Daily: 0.5 - Caffeine Use Caffeine Use: Reports: Coffee Other Caffeine Use: 2 cups coffee everyday and 3 12 oz cans of pop a day - Recreational Drug Use Recreational Drug Use: No - Living Situation & Occupation Living situation: Reports: Single Occupation: Employed ED ROS GENERAL - Review of Systems Review Of Systems: See Below Constitutional: Reports: Fever, Chills, Malaise, Weakness, Fatigue, Decreased Appetite HEENT: Reports: No Symptoms Respiratory: Reports: Shortness of Breath, Wheezing, Cough, Sputum. Denies: Pleuritic Chest Pain, Hemoptysis Cardiovascular: Reports: Chest Pain, Dyspnea on Exertion. Denies: Blood Pressure Problem (Central chest pain from coughing.), Claudication, Edema, Lightheadedness, Orthopnea Endocrine: Reports: Fatigue GI/Abdominal: Reports: Decreased Appetite : Reports: No Symptoms Musculoskeletal: Reports: No Symptoms Skin: Reports: No Symptoms Neurological: Reports: No Symptoms Psychiatric: Reports: No Symptoms Hematologic/Lymphatic: Reports: No Symptoms Immunologic: Reports: No Symptoms ED EXAM, GENERAL - Physical Exam Exam: See Below Exam Limited By: No Limitations General Appearance: Alert, WD/WN, Mild Distress, Other (Very productive sounding cough. Afebrile since presentation 36.1. Pulse 92 and sinus are suspected is 20 BP 09/21/. Pulse ox 95-96% on room air.) Eye Exam: Bilateral Eye: Normal Inspection Throat/Mouth: Normal Inspection, Normal Lips, Normal Oropharynx Head: Atraumatic, Normocephalic Neck: Normal Inspection, Supple, Non-Tender, Full Range of Motion. No: Lymphadenopathy (L), Lymphadenopathy (R) Respiratory/Chest: No Accessory Muscle Use, Decreased Breath Sounds, Rhonchi ( Left lower lung.), Wheezing (Procedure the posterior left lower lung field. Left posterior lung field). No: Lungs Clear, Normal Breath Sounds Cardiovascular: Normal Peripheral Pulses, Regular Rate, Rhythm, No Edema, No Gallop, No Murmur, No Rub Peripheral Pulses: 3+: Posterior Tibial (L), Posterior Tibial (R), Dorsalis Pedis (L), Dorsalis Pedis (R) GI/Abdominal: Normal Bowel Sounds, Soft, Non-Tender, No Organomegaly, No Abnormal Bruit, No Mass Extremities: Normal Inspection, Normal Range of Motion, Non-Tender, Normal Capillary Refill Neurological: Alert, Oriented, CN II-XII Intact, Normal Cognition Psychiatric: Normal Affect, Normal Mood Skin Exam: Warm, Dry, Intact, Normal Color, No Rash Course - Vital Signs Last Recorded V/S: Last Vital Signs Temp 36.1 C 05/28/19 06:17 Pulse 92 05/28/19 06:17 Resp 20 05/28/19 06:17 BP 125/82 05/28/19 06:17 Pulse Ox 99 05/28/19 06:45 - Orders/Labs/Meds Orders: Active Orders 24 hr Category Date Time Status RT Aerosol Therapy [RC] ASDIRECTED Care 05/28/19 06:24 Active RT Post Treatment Assessment [RC] Click to Edit Care 05/28/19 06:50 Active RT Pre-Treatment Assessment [RC] Click to Edit Care 05/28/19 06:50 Active Chest 1V Frontal [CR] Stat Exams 05/28/19 06:24 Taken Albuterol [Proventil HFA] Med 05/28/19 06:49 Active See Dose Instructions INH Q4H PRN Medication Orders Albuterol (Proventil Hfa) 0 gm INH Q4H PRN PRN Reason: relief of cough and wheezing Last Admin: 05/28/19 06:53 Dose: 2 inhaler Meds: Medications Generic Name Dose Route Start Last Admin Trade Name Freq PRN Reason Stop Dose Admin Albuterol 0 gm 05/28/19 06:49 05/28/19 06:53 Proventil Hfa INH 2 inhaler Q4H PRN Administration relief of cough and wheezing Discontinued Medications Generic Name Dose Route Start Last Admin Trade Name Freq PRN Reason Stop Dose Admin Albuterol/Ipratropium 3 ml 05/28/19 06:24 05/28/19 06:43 Duoneb 3.0-0.5 Mg/3 Ml NEB 05/28/19 06:25 3 ml ONETIME ONE Administration Levofloxacin 500 mg 05/28/19 06:43 05/28/19 06:52 Levaquin PO 05/28/19 06:44 500 mg ONETIME ONE Administration - Radiology Interpretation Free Text/Narrative:: 39-year-old female presents to the ED with a one-week history of upper respiratory tract infection. Has developed a very harsh paroxysmal productive cough and unable to get up any sputum. She had associated fever chills and rigors over the weekend particularly Monday and Monday. She had trouble breathing and cough most of the night. No history of asthma but she is a cigarette smoker of a pack per day. She is congested mostly in the left posterior lung field on examination with wheezing and rhonchi. Afebrile at present. Plan DuoNeb. One view chest x-ray to be done. - Re-Assessments/Exams Free Text/Narrative Re-Assessment/Exam: 05/28/19 06:44 chest x-ray is negative for any obvious pneumonia. Silhouette is within normal limits. Patient did get some improvement of airflow with DuoNeb. Respiratory therapist will also teach her how to use meter dose inhaler of albuterol 2 puffs every 4 hours as needed for cough relief as she is allergic to codeine and other cough syrups. Antibiotics to be Levaquin 500 milligrams once daily for the next 8 days. Follow-up with personal care physician if not markedly improved in 3 days time Departure - Departure Time of Disposition: 07:05 Disposition: Home, Self-Care 01 Condition: Fair Clinical Impression: Bronchitis - Discharge Information *PRESCRIPTION DRUG MONITORING PROGRAM REVIEWED*: No *COPY OF PRESCRIPTION DRUG MONITORING REPORT IN PATIENT JOAO: No Prescriptions: Albuterol Sulfate [Albuterol Sulfate Hfa] 8.5 gm IH Q4H #1 hfa.aer.ad levoFLOXacin [Levaquin] 500 mg PO DAILY #8 tab Instructions: How to Use a Metered Dose Inhaler, Acute Bronchitis, Adult, Easy- to-Read Referrals: Kavita Mondragon MD [Primary Care Provider] - Forms: ED Department Discharge, ED Return to Work/School Form Additional Instructions: Evaluation the emergency room today in regards to gradually worsening productive cough over the last week. Associated fever and chills. Examination reveals congestion and wheezing primarily in the left lung field lower lobe. Chest x-ray done however does not reveal any definitive pneumonia yet. Diagnosis is bronchitis. Treatment is to be a albuterol inhaler 2 puffs every 4 hours as needed for relief of cough and congestion. Antibiotic is to be Levaquin 500 milligrams once daily for the next 8 days. First tablet was provided in the ED this morning. - My Orders Last 24 Hours: My Active Orders 05/28/19 06:24 RT Aerosol Therapy [RC] ASDIRECTED Chest 1V Frontal [CR] Stat 05/28/19 06:49 Albuterol [Proventil HFA] See Dose Instructions INH Q4H PRN 05/28/19 06:50 RT Post Treatment Assessment [RC] Click to Edit RT Pre-Treatment Assessment [RC] Click to Edit - Assessment/Plan Last 24 Hours: My Active Orders 05/28/19 06:24 RT Aerosol Therapy [RC] ASDIRECTED Chest 1V Frontal [CR] Stat 05/28/19 06:49 Albuterol [Proventil HFA] See Dose Instructions INH Q4H PRN 05/28/19 06:50 RT Post Treatment Assessment [RC] Click to Edit RT Pre-Treatment Assessment [RC] Click to Edit
[2019-05-28] MEDS ORDERED: Levofloxacin 250 MG Tab PO ONE (06:43)
[2019-05-28] MEDS ORDERED: Albuterol 6.7 GM Inhaler INH PRN (06:49)
--- NOTE | 2019-05-28 08:58 | CR ---
Chest: Frontal view of the chest was obtained utilizing portable technique. Comparison: No prior chest x-ray. Heart size and mediastinum are normal. Lungs are clear. Bony structures are grossly intact. Impression: 1. Nothing acute is seen on portable chest x-ray. Diagnostic code #1
== END 2019-05-28 07:05 | disposition home or self-care (01) ==
LOC: JD.ED 06:11
DX: J40 Bronchitis, not specified as acute or chronic (principal); F17.210 Nicotine dependence, cigarettes, uncomplicated; Z88.5 Allergy status to narcotic agent; Z88.8 Allergy status to other drugs, medicaments and biological substances; Z79.899 Other long term (current) drug therapy
CPT/HCPCS: 71045; 94640; 99283; A9270; J7620-GY

== ENCOUNTER 2019-06-27 05:48 | Emergency (ER) | payer BC ==
[2019-06-27 06:01] VITALS: BP 123/86; PULSE 110
--- NOTE | 2019-06-27 06:31 | EDM.PDOC ---
ED HPI GENERAL MEDICAL PROBLEM - General Chief Complaint: Allergic Reaction Stated Complaint: EAR SWOLLEN AND SORE THROAT Time Seen by Provider: 06/27/19 05:58 Source of Information: Reports: Patient, Other (Friend) History Limitations: Reports: No Limitations - History of Present Illness INITIAL COMMENTS - FREE TEXT/NARRATIVE: Ms. Barnett is a very pleasant 39-year-old woman with a past medical history significant for ulcerative colitis, who states that she developed right ear swelling yesterday morning, 06/26/2019, but then it got much worse last night. She woke with significant pain and swelling this morning. She also reports having a sore throat overnight, as well. No recent fever, although she has had some chills. No prior similar symptoms. The patient has deep cracks in the skin behind each ear. She states that she saw a [facility] in [place] about it, whose name she does not recall, and was told that she might have psoriasis. A compounded cream was prescribed, that the patient states did not help at all. The patient states that she took some Advil last night before she went to bed, but has not taken any other medications. The patient states that she uses antibacterial soap at home. The patient's PCP is Dr. Kavita Mondragon. Her Loss Control Consultant is Dr. Dakota Esteban. 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: - Past Surgical History HEENT Surgical History: Reports: Oral Surgery (3 wisdom teeth extracted) GI Surgical History: Reports: Colonoscopy (x 4) Female Surgical History: Reports: D&C (x 1), Tubal Ligation Social & Family History - Family History Family Medical History: Noncontributory - Tobacco Use Smoking Status *Q: Current Every Day Smoker Years of Tobacco use: 26 Packs/Tins Daily: 0.5 Packs/Tins Daily Comment: Down from 1 ppd - Caffeine Use Caffeine Use: Reports: Coffee Other Caffeine Use: 2 cups coffee everyday and 3 12 oz cans of pop a day - Alcohol Use Alcohol Use History: Yes Alcohol Use Frequency: Socially (occasionally to excess) - Recreational Drug Use Recreational Drug Use: Yes Drug Use in Last 12 Months: No Recreational Drug Type: Reports: Marijuana/Hashish (last smoked 2009) - Living Situation & Occupation Living situation: Reports: , with Family (3 daughters + 1 grandson) Occupation: Employed ([employer]) ED ROS GENERAL - Review of Systems Review Of Systems: ROS reveals no pertinent complaints other than HPI. ED EXAM, GENERAL - Physical Exam Exam: See Below Exam Limited By: No Limitations General Appearance: Alert, WD/WN, No Apparent Distress Eye Exam: Bilateral Eye: EOMI, Normal Inspection Ears: Normal Canal (bilaterally), Hearing Grossly Normal, Normal TMs, Other ( Significant swelling and erythema to the right external ear, extending to the skin behind the ear. The erythematous skin is indurated. There are deep cracks in the skin behind each ear.) Nose: Normal Inspection, Normal Mucosa, No Blood Throat/Mouth: Normal Inspection, Normal Lips, Normal Teeth, Normal Gums, Normal Oropharynx, Normal Voice, No Airway Compromise Head: Atraumatic, Normocephalic Neck: Normal Inspection, Supple, Non-Tender, Full Range of Motion. No: Limited Range of Motion, Lymphadenopathy (L) Respiratory/Chest: No Respiratory Distress, Lungs Clear, Normal Breath Sounds, No Accessory Muscle Use Cardiovascular: Normal Peripheral Pulses, Regular Rate, Rhythm, No Edema, No Gallop, No JVD, No Murmur, No Rub Peripheral Pulses: 4+: Radial (L), Radial (R) GI/Abdominal: Normal Bowel Sounds, Soft, Non-Tender, No Organomegaly, No Distention, No Abnormal Bruit, No Mass (Female) Exam: Deferred Rectal (Female) Exam: Deferred Back Exam: Normal Inspection, Full Range of Motion, NT Extremities: Normal Inspection, Normal Range of Motion, No Pedal Edema, Normal Capillary Refill Neurological: Alert, Oriented, Normal Cognition, No Motor/Sensory Deficits Psychiatric: Normal Affect Skin Exam: Warm, Dry, Intact, Normal Color, No Rash Course - Vital Signs Last Recorded V/S: Last Vital Signs Temp 36.9 C 06/27/19 05:59 Pulse 110 H 06/27/19 05:59 Resp 16 06/27/19 05:59 BP 123/86 06/27/19 05:59 Pulse Ox 96 06/27/19 05:59 - Orders/Labs/Meds Orders: Active Orders 24 hr Category Date Time Status METH-RESIST S.AUR,MRSA BY PCR [MOLEC] Stat Lab 06/27/19 06:14 Ordered STREP SCRN A RAPID W CULT CONF [RM] Stat Lab 06/27/19 06:14 Ordered - Re-Assessments/Exams Free Text/Narrative Re-Assessment/Exam: 06/27/19 06:18 Most of the patient's right external ear is swollen and erythematous, consistent with cellulitis. The source appears to be cracked skin behind the ear , likely due to eczema. The same condition is found behind the patient's left ear, although there does not appear to be cellulitis there. The patient will need to be treated with an oral antibiotic; I will start her on Keflex, but because the patient uses antibacterial soap at home, this increases her risk of being colonized by MRSA. We will therefore acquired MRSA screen by PCR, and if it returns positive, the antibiotic will need to be switched. With respect to the patient's sore throat, I swabbed for a rapid strep test. 06/27/19 06:45 The patient's rapid strep test returned negative. She will be started on oral Keflex for the right ear cellulitis, but I am not going to submit a prescription until I have the MRSA screen results. If she is colonized with MRSA , I will prescribe 10 days of Bactrim DS; if the MRSA screen is negative, I will prescribe 10 days of Keflex. Either way, I will notify the patient of the result. 06/27/19 07:[address] Yadav, who suggested that instead of deciding between Keflex and Bactrim DS, the patient can be prescribed 10 days of doxycycline 100 mg po Q12 hrs, that she can start taking this morning. I will submit the prescription. Departure - Departure Time of Disposition: 06:46 Disposition: Home, Self-Care 01 Condition: Good Clinical Impression: Cellulitis of right external ear, Sore throat - Discharge Information *PRESCRIPTION DRUG MONITORING PROGRAM REVIEWED*: Not Applicable *COPY OF PRESCRIPTION DRUG MONITORING REPORT IN PATIENT JOAO: Not Applicable Referrals: Kavita Mondragon MD [Primary Care Provider] - Dakota Esteban MD [Ordering Only Provider] - Additional Instructions: You were seen in emergency room for a swollen right ear and a sore throat. Workup in the ER included a rapid strep test and an MRSA screen by PCR. The rapid strep test returned negative. The MRSA screen has not yet resulted. Your sore throat is likely due to a virus, and does not require antibiotics, however, your swollen right ear is likely due to cellulitis, and does require treatment with antibiotics for 10 days. You have been started on the antibiotic Keflex. A prescription for the antibiotic doxycycline has been sent to the [facility], located in the [employer] [facility]. Take one tablet of doxycycline every 12 hours, as prescribed. Finish the entire 10 day prescription unless told otherwise by a doctor. If any other problems, please do not hesitate to return to the ER. - My Orders Last 24 Hours: My Active Orders 06/27/19 06:14 METH-RESIST S.AUR,MRSA BY PCR [MOLEC] Stat STREP SCRN A RAPID W CULT CONF [RM] Stat - Assessment/Plan Last 24 Hours: My Active Orders 06/27/19 06:14 METH-RESIST S.AUR,MRSA BY PCR [MOLEC] Stat STREP SCRN A RAPID W CULT CONF [RM] Stat
[2019-06-27] MEDS ORDERED: Cephalexin 500 MG Cap PO STA (06:40)
== END 2019-06-27 07:08 | disposition home or self-care (01) ==
LOC: JD.ED 05:48
DX: H60.11 Cellulitis of right external ear (principal); J02.9 Acute pharyngitis, unspecified; F17.210 Nicotine dependence, cigarettes, uncomplicated; Z88.5 Allergy status to narcotic agent; Z88.6 Allergy status to analgesic agent
CPT/HCPCS: 87077; 87081; 87430; 87641; 99283; A9270-GY

== ENCOUNTER 2020-07-04 11:01 | Emergency (ER) | payer BC ==
[2020-07-04] MEDS ORDERED: Sodium Chloride 0.9% 1,000 ML IV ONE (11:28)
[2020-07-04] MEDS ORDERED: Sodium Chloride 0.9% 10 ML Syringe FLUSH PRN (11:28)
[2020-07-04] MEDS ORDERED: Metoclopramide 10 MG/2 ML SDV IVPUSH ONE (11:28)
--- NOTE | 2020-07-04 11:33 | EDM.PDOC ---
ED HPI GENERAL MEDICAL PROBLEM - General Chief Complaint: Abdominal Pain Stated Complaint: ABDOMINAL PAIN Time Seen by Provider: 07/04/20 11:15 Source of Information: Reports: Patient, RN Notes Reviewed History Limitations: Reports: No Limitations - History of Present Illness INITIAL COMMENTS - FREE TEXT/NARRATIVE: Patient is a 40-year-old female who presents to the ED for her abdominal pain. Patient notes she has a history of ulcerative colitis, and states that she feels like she is having a flareup of her UC. This is been going on for a few weeks, but states over the last few days it is worsened, she is having multiple bouts of diarrhea throughout the day and night, low abdominal cramping that seems to come and go, and she is noticing small bits of blood in her stool at this time. She has no back pain at this time, which sometimes is an indicator of more severe disease for herself. She also is not complaining of any UTI-like symptoms. She states that she had a round of prednisone in April for a flare. She does have a GI specialist by the name of Willa Cheema in [place], she is currently on Humira for her ulcerative colitis. She has not been able to contact her specialist for change in medications as she states she has been using Humira for 5 years, and questioning whether or not it is working correctly. She is denying any fevers or chills, cough or shortness of breath at this time. Lower Abdomen Pain Score (Numeric/FACES): 5 - Related Data Allergies Allergy/AdvReac Type Severity Reaction Status Date / Time codeine Allergy Severe Shortness Verified 06/27/19 06:01 of Breath meloxicam Allergy Severe Hives Verified 06/27/19 06:01 Home Meds: Home Meds Adalimumab [Humira] 20 mg SUBCUT ASDIRECTED 05/28/19 [History] Dicyclomine [Bentyl] 20 mg PO TID #15 tab 07/04/20 [Rx] predniSONE 20 mg PO ASDIRECTED #15 tab 07/04/20 [Rx] Past Medical History Respiratory History: Reports: Bronchitis, Recurrent Gastrointestinal History: Reports: Inflammatory Bowel Disease, Other (See Below) Other Gastrointestinal History: ulcerative colitis Genitourinary History: Reports: Pyelonephritis 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 - Past Surgical History HEENT Surgical History: Reports: Oral Surgery GI Surgical History: Reports: Colonoscopy Female Surgical History: Reports: D&C, Tubal Ligation Social & Family History - Family History Family Medical History: Noncontributory - Tobacco Use Tobacco Use Status *Q: Current Every Day Tobacco User Years of Tobacco use: 3 Packs/Tins Daily: 0.1 - Caffeine Use Caffeine Use: Reports: Coffee, Soda Other Caffeine Use: 2 cups coffee everyday and 3 12 oz cans of pop a day - Recreational Drug Use Recreational Drug Use: No - Living Situation & Occupation Living situation: Reports: , with Family (3 daughters + 1 grandson) Occupation: Employed ([employer]) ED ROS GENERAL - Review of Systems Review Of Systems: Comprehensive ROS is negative, except as noted in HPI. ED EXAM, GI/ABD - Physical Exam Exam: See Below Exam Limited By: No Limitations General Appearance: Alert, WD/WN, No Apparent Distress Throat/Mouth: Normal Inspection, Normal Lips, Normal Teeth, Normal Gums, Normal Oropharynx, Normal Voice, No Airway Compromise Head: Atraumatic Neck: Normal Inspection Respiratory/Chest: No Respiratory Distress, Lungs Clear, Normal Breath Sounds, No Accessory Muscle Use, Chest Non-Tender Cardiovascular: Normal Peripheral Pulses, Regular Rate, Rhythm, No Murmur GI/Abdominal Exam: Normal Bowel Sounds, Soft, No Distention, No Mass, Tender (generalized) Rectal (Female) Exam: Deferred (pt states that her rectum is sore and tender from the diarrhea she has been experiencing) Extremities: Normal Inspection, Normal Capillary Refill Neurological: Alert, Oriented, Normal Cognition, No Motor/Sensory Deficits Psychiatric: Normal Affect, Normal Mood Skin Exam: Warm, Dry, Intact, Normal Color, No Rash Course - Vital Signs Last Recorded V/S: Last Vital Signs Temp 98.0 F 07/04/20 11:14 Pulse 93 07/04/20 11:14 Resp 20 07/04/20 11:14 BP 115/77 07/04/20 11:14 Pulse Ox 97 07/04/20 11:14 - Orders/Labs/Meds Orders: Active Orders 24 hr Category Date Time Status Peripheral IV Care [RC] . DIRECTED Care 07/04/20 11:28 Ordered CBC WITH AUTO DIFF [HEME] Stat Lab 07/04/20 11:28 Ordered Sodium Chloride 0.9% [Saline Flush] Med 07/04/20 11:28 Ordered 10 ml FLUSH ASDIRECTED PRN Peripheral IV Insertion Adult [OM.PC] Routine Oth 07/04/20 11:27 Ordered Medication Orders Sodium Chloride (Saline Flush) 10 ml FLUSH ASDIRECTED PRN PRN Reason: Keep Vein Open Last Admin: 07/04/20 11:55 Dose: 10 ml Documented by: NO Labs: Laboratory Tests 07/04/20 07/04/20 Range/Units 11:55 11:55 WBC 6.39 (3.98-10.04) K/mm3 RBC 4.28 (3.98-5.22) M/mm3 Hgb 9.8 L (11.2-15.7) gm/dl Hct 33.2 L (34.1-44.9) % MCV 77.6 L (79.4-94.8) fl MCH 22.9 L (25.6-32.2) pg MCHC 29.5 L (32.2-35.5) g/dl RDW Std Deviation 43.1 (36.4-46.3) fL Plt Count 472 H (182-369) K/mm3 MPV 7.5 L (9.4-12.3) fl Neut % (Auto) 53.0 (34.0-71.1) % Lymph % (Auto) 34.9 (19.3-51.7) % [place] % (Auto) 9.4 (4.7-12.5) % Eos % (Auto) 2.2 (0.7-5.8) Baso % (Auto) 0.3 (0.1-1.2) % Neut # (Auto) 3.39 (1.56-6.13) K/mm3 Lymph # (Auto) 2.23 (1.18-3.74) K/mm3 [place] # (Auto) 0.60 H (0.24-0.36) K/mm3 Eos # (Auto) 0.14 (0.04-0.36) K/mm3 Baso # (Auto) 0.02 (0.01-0.08) K/mm3 Sodium 138 (136-145) mEq/L Potassium 3.8 (3.5-5.1) mEq/L Chloride 101 (98-107) mEq/L Carbon Dioxide 27 (21-32) mEq/L Anion Gap 13.8 (5-15) BUN 11 (7-18) mg/dL Creatinine 1.1 H (0.55-1.02) mg/dL Est Cr Clr Drug Dosing 58.12 mL/min Estimated GFR (MDRD) 55 (>60) mL/min BUN/Creatinine Ratio 10.0 L (14-18) Glucose 88 (74-106) mg/dL Calcium 9.1 (8.5-10.1) mg/dL Magnesium 2.0 (1.8-2.4) mg/dl Total Bilirubin 0.3 (0.2-1.0) mg/dL AST 9 L (15-37) U/L ALT 16 (14-59) U/L Alkaline Phosphatase 39 L (46-116) U/L Total Protein 8.1 (6.4-8.2) g/dl Albumin 2.9 L (3.4-5.0) g/dl Globulin 5.2 gm/dL Albumin/Globulin Ratio 0.6 L (1-2) Meds: Medications Generic Name Dose Route Start Last Admin Trade Name Freq PRN Reason Stop Dose Admin Sodium Chloride 10 ml 07/04/20 11:28 07/04/20 11:55 Saline Flush FLUSH 10 ml ASDIRECTED PRN Administration Keep Vein Open Discontinued Medications Generic Name Dose Route Start Last Admin Trade Name Freq PRN Reason Stop Dose Admin Sodium Chloride 1,000 mls @ 999 mls/hr 07/04/20 11:28 07/04/20 11:56 Normal Saline IV 07/04/20 12:28 999 mls/hr ONETIME ONE Administration Metoclopramide HCl 10 mg 07/04/20 11:28 Reglan IVPUSH 07/04/20 11:29 ONETIME ONE - Re-Assessments/Exams Free Text/Narrative Re-Assessment/Exam: 07/04/20 11:33 Patient presents to the ED for evaluation of her possible ulcerative colitis flare. We will start her on some IV fluids, she states she is not really been eating much or drinking much in the past few days, check some labs, and likely send her home with a prescription for prednisone and possibly dicyclomine for the abdomen cramping. 07/04/20 12:45 Patient's labs are essentially normal; her hemoglobin is slightly low at 9.8, she will be sent home with a prescription for prednisone and some dicyclomine for further management. We will give her the strict recommendations eating some hearty meals over the next few days, when she starts feeling a little bit better; have her follow up with her GI doctor and possibly Dr. Mondragon this week as well to have her labs re-checked. Departure - Departure Time of Disposition: 12:47 Disposition: Home, Self-Care 01 Condition: Good Clinical Impression: Exacerbation of ulcerative colitis with rectal bleeding - Discharge Information *PRESCRIPTION DRUG MONITORING PROGRAM REVIEWED*: No *COPY OF PRESCRIPTION DRUG MONITORING REPORT IN PATIENT JOAO: No Prescriptions: Dicyclomine [Bentyl] 20 mg PO TID #15 tab predniSONE 20 mg PO ASDIRECTED #15 tab Instructions: Ulcerative Colitis, Adult Referrals: Kavita Mondragon MD [Primary Care Provider] - Forms: ED Department Discharge Additional Instructions: You were seen in the ER for your suspected ulcerative colitis flare. Your laboratory evaluation demonstrated a mildly low hemoglobin at 9.8, however this is not low enough to require transfusion at this time. You have been given some IV fluids, and will be started on a course of prednisone and given some dicyclomine for abdomen pain. Please continue to monitor your symptoms at home, if you should have more dizziness with standing, low blood pressures, ETC this may be cause for concern to return to the ER for more urgent management. I would recommend you follow-up with Dr. Mondragon, sometime next week to get your labs redrawn to make sure that your levels are getting better as expected. I would also follow-up with your GI specialist for change in your long-term UC medication management. Please return to the ER at any time if symptoms change or worsen. Sepsis Event Note (ED) - Evaluation Sepsis Screening Result: No Definite Risk - Focused Exam Vital Signs: Vital Signs Temp Pulse Resp BP Pulse Ox 07/04/20 11:14 98.0 F 93 20 115/77 97 - My Orders Last 24 Hours: My Active Orders 07/04/20 11:27 Peripheral IV Insertion Adult [OM.PC] Routine 07/04/20 11:28 Peripheral IV Care [RC] . DIRECTED CBC WITH AUTO DIFF [HEME] Stat Sodium Chloride 0.9% [Saline Flush] 10 ml FLUSH ASDIRECTED PRN - Assessment/Plan Last 24 Hours: My Active Orders 07/04/20 11:27 Peripheral IV Insertion Adult [OM.PC] Routine 07/04/20 11:28 Peripheral IV Care [RC] . DIRECTED CBC WITH AUTO DIFF [HEME] Stat Sodium Chloride 0.9% [Saline Flush] 10 ml FLUSH ASDIRECTED PRN
[2020-07-04 13:21] VITALS: BP 95/55; PULSE 84
== END 2020-07-04 13:25 | disposition home or self-care (01) ==
LOC: JD.ED 11:01
DX: K51.911 Ulcerative colitis, unspecified with rectal bleeding (principal); Z88.5 Allergy status to narcotic agent; Z88.8 Allergy status to other drugs, medicaments and biological substances; F17.210 Nicotine dependence, cigarettes, uncomplicated
CPT/HCPCS: 36415; 80053; 83735; 85025; 99284; J7030

== ENCOUNTER 2020-09-03 08:33 | Emergency (ER) | payer BC ==
[2020-09-03 08:51] VITALS: BP 118/87; PULSE 108
[2020-09-03] MEDS ORDERED: Sodium Chloride 0.9% 10 ML Syringe FLUSH PRN (09:07)
[2020-09-03] MEDS ORDERED: Dicyclomine 10 MG Cap PO ONE (09:07)
[2020-09-03] MEDS ORDERED: Sodium Chloride 0.9% 1,000 ML IV ONE (09:07)
--- NOTE | 2020-09-03 09:26 | EDM.PDOC ---
ED HPI GENERAL MEDICAL PROBLEM - General Chief Complaint: Abdominal Pain Stated Complaint: ABDOMINAL PAIN Time Seen by Provider: 09/03/20 09:07 Source of Information: Reports: Patient History Limitations: Reports: No Limitations - History of Present Illness INITIAL COMMENTS - FREE TEXT/NARRATIVE: Presents to the emergency department with complaints of abdominal pain. Patient has a known diagnosis of ulcerative colitis. She states she was on Humira for about 5 years and that progressively's started to fail. She states her GI specialist is Dr. Ocasio in [place] and she recently had a colonoscopy in the last few weeks. Dr. Ocasio's nurse practitioner, Willa Frederick, called the patient and stated that there was a significant amount of inflammation so she was then started on a tapering dose of budesonide 9 mg 3 times a day followed by 9 mg 2 times a day followed by 9 mg once daily. Patient states once she got to the once daily dosing it stopped working for her so she stopped taking it. This was about 2 to 3 days ago. Since then patient states she has had significant abdominal cramping, 20+ stools per day with occasional blood noted in the stool. She states that on September 28 of this year she is supposed to be starting Entyvio infusions as that is the first appointment they could get for her. Lower Abdomen Pain Score (Numeric/FACES): 3 - Related Data Allergies Allergy/AdvReac Type Severity Reaction Status Date / Time codeine Allergy Severe Shortness Verified 09/03/20 08:50 of Breath meloxicam Allergy Severe Hives Verified 09/03/20 08:50 Home Meds: Home Meds predniSONE 10 mg PO BID #28 tab 09/03/20 [Rx] predniSONE 20 mg PO BID #28 tab 09/03/20 [Rx] Past Medical History - Past Health History Medical/Surgical History: Denies Medical/Surgical History Respiratory History: Reports: Bronchitis, Recurrent Gastrointestinal History: Reports: Inflammatory Bowel Disease, Other (See Below) Other Gastrointestinal History: ulcerative colitis Genitourinary History: Reports: 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 - Past Surgical History HEENT Surgical History: Reports: Oral Surgery Other HEENT Surgeries/Procedures: [place] teeth removed x 3 GI Surgical History: Reports: Colonoscopy Female Surgical History: Reports: D&C, Tubal Ligation Musculoskeletal Surgical History: Reports: None Dermatological Surgical History: Reports: None Social & Family History - Family History Family Medical History: No Pertinent Family History - Tobacco Use Tobacco Use Status *Q: Current Every Day Tobacco User Years of Tobacco use: 10 Packs/Tins Daily: 10 - Caffeine Use Caffeine Use: Reports: None Other Caffeine Use: 2 cups coffee everyday and 3 12 oz cans of pop a day - Recreational Drug Use Recreational Drug Use: No - Living Situation & Occupation Living situation: Reports: , with Family (3 daughters + 1 grandson) Occupation: Employed ([employer]) ED ROS GENERAL - Review of Systems Review Of Systems: See Below Constitutional: Reports: Fatigue. Denies: Fever, Chills HEENT: Reports: No Symptoms Respiratory: Reports: No Symptoms Cardiovascular: Reports: No Symptoms Endocrine: Reports: No Symptoms GI/Abdominal: Reports: Abdominal Pain (cramping), Bloody Stool, Diarrhea (20+ per day), Nausea. Denies: Vomiting : Reports: No Symptoms Musculoskeletal: Reports: No Symptoms Skin: Reports: No Symptoms Neurological: Reports: No Symptoms Psychiatric: Reports: No Symptoms Hematologic/Lymphatic: Reports: No Symptoms Immunologic: Reports: No Symptoms ED EXAM, GI/ABD - Physical Exam Exam: See Below Exam Limited By: No Limitations General Appearance: Alert, WD/WN, No Apparent Distress Ears: Hearing Grossly Normal Nose: Normal Inspection Throat/Mouth: Normal Inspection, Normal Voice, No Airway Compromise Head: Atraumatic, Normocephalic Neck: Normal Inspection, Supple, Non-Tender, Full Range of Motion Respiratory/Chest: No Respiratory Distress, Lungs Clear, Normal Breath Sounds, No Accessory Muscle Use, Chest Non-Tender Cardiovascular: Normal Peripheral Pulses, Regular Rate, Rhythm, No Edema, No Murmur GI/Abdominal Exam: Normal Bowel Sounds, Soft, No Distention, Tender. No: Distended, Rigid, Rebound (Female) Exam: Deferred Rectal (Female) Exam: Deferred Back Exam: Normal Inspection, Full Range of Motion Extremities: Normal Inspection, Normal Range of Motion, Non-Tender, No Pedal Edema, Normal Capillary Refill Neurological: Alert, Oriented, Normal Cognition Psychiatric: Normal Affect, Normal Mood Skin Exam: Warm, Dry, Intact, Normal Color, No Rash Lymphatic: No Adenopathy Course - Vital Signs Text/Narrative:: I have ordered a CBC, CMP, ESR, CRP, and NS@999ml/hr, and bentyl for the patient. Last Recorded V/S: Last Vital Signs Temp 97.0 F 09/03/20 08:46 Pulse 108 H 09/03/20 08:46 Resp 20 09/03/20 08:46 BP 118/87 09/03/20 08:46 Pulse Ox 100 09/03/20 08:46 - Orders/Labs/Meds Orders: Active Orders 24 hr Category Date Time Status Sodium Chloride 0.9% [Saline Flush] Med 09/03/20 09:07 Active 10 ml FLUSH ASDIRECTED PRN Saline Lock Insert [OM.PC] Stat Oth 09/03/20 09:07 Ordered Medication Orders Sodium Chloride (Saline Flush) 10 ml FLUSH ASDIRECTED PRN PRN Reason: Keep Vein Open Last Admin: 09/03/20 09:14 Dose: 10 ml Documented by: KEY Labs: Laboratory Tests 09/03/20 09/03/20 09/03/20 Range/Units 08:52 08:52 08:52 WBC 7.73 (3.98-10.04) K/mm3 RBC 4.70 (3.98-5.22) M/mm3 Hgb 9.9 L (11.2-15.7) gm/dl Hct 34.8 (34.1-44.9) % MCV 74.0 L D (79.4-94.8) fl MCH 21.1 L (25.6-32.2) pg MCHC 28.4 L (32.2-35.5) g/dl RDW Std Deviation 44.4 (36.4-46.3) fL Plt Count 572 H D (182-369) K/mm3 MPV 7.8 L (9.4-12.3) fl Neut % (Auto) 47.0 (34.0-71.1) % Lymph % (Auto) 40.2 (19.3-51.7) % [place] % (Auto) 10.1 (4.7-12.5) % Eos % (Auto) 2.3 (0.7-5.8) Baso % (Auto) 0.3 (0.1-1.2) % Neut # (Auto) 3.63 (1.56-6.13) K/mm3 Lymph # (Auto) 3.11 (1.18-3.74) K/mm3 [place] # (Auto) 0.78 H (0.24-0.36) K/mm3 Eos # (Auto) 0.18 (0.04-0.36) K/mm3 Baso # (Auto) 0.02 (0.01-0.08) K/mm3 ESR (0-20) mm/hr Sodium 139 (136-145) mEq/L Potassium 3.8 (3.5-5.1) mEq/L Chloride 102 (98-107) mEq/L Carbon Dioxide 28 (21-32) mEq/L Anion Gap 12.8 (5-15) BUN 9 (7-18) mg/dL Creatinine 0.9 (0.55-1.02) mg/dL Est Cr Clr Drug Dosing 71.03 mL/min Estimated GFR (MDRD) > 60 (>60) mL/min BUN/Creatinine Ratio 10.0 L (14-18) Glucose 86 (74-106) mg/dL Calcium 9.1 (8.5-10.1) mg/dL Magnesium 2.3 (1.8-2.4) mg/dl Total Bilirubin 0.4 (0.2-1.0) mg/dL AST 10 L (15-37) U/L ALT 15 (14-59) U/L Alkaline Phosphatase 49 (46-116) U/L C-Reactive Protein 11.6 H* (<1.0) mg/dL Total Protein 8.7 H (6.4-8.2) g/dl Albumin 2.8 L (3.4-5.0) g/dl Globulin 5.9 gm/dL Albumin/Globulin Ratio 0.5 L (1-2) C.difficile [id number]-[id number] C. difficile Tox (PCR) 09/03/20 09/03/20 Range/Units 09:00 11:05 WBC (3.98-10.04) K/mm3 RBC (3.98-5.22) M/mm3 Hgb (11.2-15.7) gm/dl Hct (34.1-44.9) % MCV (79.4-94.8) fl MCH (25.6-32.2) pg MCHC (32.2-35.5) g/dl RDW Std Deviation (36.4-46.3) fL Plt Count (182-369) K/mm3 MPV (9.4-12.3) fl Neut % (Auto) (34.0-71.1) % Lymph % (Auto) (19.3-51.7) % [place] % (Auto) (4.7-12.5) % Eos % (Auto) (0.7-5.8) Baso % (Auto) (0.1-1.2) % Neut # (Auto) (1.56-6.13) K/mm3 Lymph # (Auto) (1.18-3.74) K/mm3 [place] # (Auto) (0.24-0.36) K/mm3 Eos # (Auto) (0.04-0.36) K/mm3 Baso # (Auto) (0.01-0.08) K/mm3 ESR 51 H (0-20) mm/hr Sodium (136-145) mEq/L Potassium (3.5-5.1) mEq/L Chloride (98-107) mEq/L Carbon Dioxide (21-32) mEq/L Anion Gap (5-15) BUN (7-18) mg/dL Creatinine (0.55-1.02) mg/dL Est Cr Clr Drug Dosing mL/min Estimated GFR (MDRD) (>60) mL/min BUN/Creatinine Ratio (14-18) Glucose (74-106) mg/dL Calcium (8.5-10.1) mg/dL Magnesium (1.8-2.4) mg/dl Total Bilirubin (0.2-1.0) mg/dL AST (15-37) U/L ALT (14-59) U/L Alkaline Phosphatase (46-116) U/L C-Reactive Protein (<1.0) mg/dL Total Protein (6.4-8.2) g/dl Albumin (3.4-5.0) g/dl Globulin gm/dL Albumin/Globulin Ratio (1-2) C.difficile [id number] Presumptive negative C. difficile Tox (PCR) Negative Meds: Medications Generic Name Dose Route Start Last Admin Trade Name Freq PRN Reason Stop Dose Admin Sodium Chloride 10 ml 09/03/20 09:07 09/03/20 09:14 Saline Flush FLUSH 10 ml ASDIRECTED PRN Administration Keep Vein Open Discontinued Medications Generic Name Dose Route Start Last Admin Trade Name Monica PRN Reason Stop Dose Admin Dicyclomine HCl 10 mg 09/03/20 09:07 09/03/20 09:15 Bentyl PO 09/03/20 09:08 10 mg ONETIME ONE Administration Sodium Chloride 1,000 mls @ 999 mls/hr 09/03/20 09:07 09/03/20 09:14 Normal Saline IV 09/03/20 10:07 999 mls/hr ONETIME ONE Administration - Re-Assessments/Exams Free Text/Narrative Re-Assessment/Exam: 09/03/20 10:29 Labs reveal WBC 7.73, hemoglobin 9.9, patient does have a known history of anemia, MCV 74.0, platelet count 572, ESR 51, C-reactive protein 11.[address] Esteban regarding these lab results and he recommends we get a stool for C. difficile. If that is negative we are to start the patient on prednisone 60 mg daily for 2 weeks and by then she will be able to start her Entyvio infusions as scheduled for September 28. 09/03/20 12:59 Patient C. difficile is negative. Patient will be discharged home with a prescription for prednisone 60 mg daily x2 weeks. Departure - Departure Time of Disposition: 12:59 Disposition: Home, Self-Care 01 Condition: Good Clinical Impression: Ulcerative colitis Qualifiers: Ulcerative colitis location: unspecified ulcerative colitis location Digestive disease complication type: unspecified complication Qualified Code(s): K51.919 - Ulcerative colitis, unspecified with unspecified complications - Discharge Information Prescriptions: predniSONE 10 mg PO BID #28 tab predniSONE 20 mg PO BID #28 tab Referrals: Kavita Mondragon MD [Primary Care Provider] - Forms: ED Department Discharge Additional Instructions: You are seen in the emergency department today with complaints of an exacerbation of your ulcerative colitis. Labs revealed elevated inflammatory markers. Your C. difficile test was negative. I spoke with your GI specialist Dr. Ocasio who recommends that you take prednisone 60 mg daily for 2 weeks until you able to follow-up and receive your infusion. Condition worsen or change please return to the emergency department. Sepsis Event Note (ED) - Evaluation Sepsis Screening Result: No Definite Risk - Focused Exam Vital Signs: Vital Signs Temp Pulse Resp BP Pulse Ox 09/03/20 08:46 97.0 F 108 H 20 118/87 100 - My Orders Last 24 Hours: My Active Orders 09/03/20 09:07 Sodium Chloride 0.9% [Saline Flush] 10 ml FLUSH ASDIRECTED PRN Saline Lock Insert [OM.PC] Stat - Assessment/Plan Last 24 Hours: My Active Orders 09/03/20 09:07 Sodium Chloride 0.9% [Saline Flush] 10 ml FLUSH ASDIRECTED PRN Saline Lock Insert [OM.PC] Stat
== END 2020-09-03 13:30 | disposition home or self-care (01) ==
LOC: JD.ED 08:33
DX: K51.919 Ulcerative colitis, unspecified with unspecified complications (principal); F17.210 Nicotine dependence, cigarettes, uncomplicated; Z88.5 Allergy status to narcotic agent; Z88.8 Allergy status to other drugs, medicaments and biological substances
CPT/HCPCS: 36415; 80053; 83735; 85025; 85652; 86140; 87493; 99284; A9270; J7030

== ENCOUNTER 2020-10-26 06:11 | Emergency (ER) | payer BC ==
[2020-10-26] MEDS ORDERED: Acetaminophen/HYDROcodone 325-5 MG Tab PO ONE (06:32)
--- NOTE | 2020-10-26 07:15 | EDM.PDOC ---
ED HPI GENERAL MEDICAL PROBLEM - General Chief Complaint: General Stated Complaint: BODY PAIN Time Seen by Provider: 10/26/20 06:21 Source of Information: Reports: Patient History Limitations: Reports: No Limitations - History of Present Illness INITIAL COMMENTS - FREE TEXT/NARRATIVE: The patient presents with generalized muscle and joint pain. This has been going on for over a week. She sees GI in Justo Frederick at [facility] and they had her on Humira and switched her to another biologic called Entivia. After that she started having joint and muscle pain with joint swelling. She also has been on prednisone taper since August and just took the lat one yesterday. She also developed a papular rash on her arms and hands. It does not itch. The rash on her hands is a little painful. She was recently started on cipro and flagyl on 10/12/20. She is supposed to be on that for 30 days. She has no fever, chills, cough, shortness of breath, abdominal pain, chest pain, nausea or vomiting. Onset: Gradual Duration: Week(s): Location: Reports: Generalized Quality: Reports: Sharp Severity: Moderate Improves with: Reports: Immobilization Worsens with: Reports: Movement Context: Denies: Trauma Associated Symptoms: Reports: No Other Symptoms Generalized Pain Score (Numeric/FACES): 7 - Related Data Allergies Allergy/AdvReac Type Severity Reaction Status Date / Time codeine Allergy Severe Shortness Verified 10/26/20 06:19 of Breath meloxicam Allergy Severe Hives Verified 10/26/20 06:19 Home Meds: Home Meds Ciprofloxacin [Ciprofloxacin HCl] 500 mg PO BID 10/26/20 [History] Pantoprazole [ProTONIX] 40 mg PO BID 10/26/20 [History] metroNIDAZOLE [Metronidazole] 500 mg PO TID 10/26/20 [History] sulfaSALAzine 500 mg PO Q6HR #40 tablet 10/26/20 [Rx] Past Medical History - Past Health History Medical/Surgical History: Denies Medical/Surgical History Respiratory History: Reports: Bronchitis, Recurrent Gastrointestinal History: Reports: Inflammatory Bowel Disease, Other (See Below) Other Gastrointestinal History: ulcerative colitis Genitourinary History: Reports: Pyelonephritis 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 - Past Surgical History HEENT Surgical History: Reports: Oral Surgery Other HEENT Surgeries/Procedures: [place] teeth removed x 3 GI Surgical History: Reports: Colonoscopy Female Surgical History: Reports: D&C, Tubal Ligation Dermatological Surgical History: Reports: None Social & Family History - Family History Family Medical History: No Pertinent Family History - Caffeine Use Caffeine Use: Reports: None Other Caffeine Use: 2 cups coffee everyday and 3 12 oz cans of pop a day - Recreational Drug Use Recreational Drug Use: No - Living Situation & Occupation Living situation: Reports: , with Family (3 daughters + 1 grandson) Occupation: Employed ([employer]) ED ROS GENERAL - Review of Systems Review Of Systems: See Below Constitutional: Reports: Weakness, Fatigue. Denies: Fever, Chills HEENT: Reports: No Symptoms Respiratory: Reports: No Symptoms Cardiovascular: Reports: No Symptoms Endocrine: Reports: No Symptoms GI/Abdominal: Reports: No Symptoms : Reports: No Symptoms Musculoskeletal: Reports: Joint Pain, Joint Swelling, Muscle Stiffness ED EXAM, GENERAL - Physical Exam Exam: See Below Exam Limited By: No Limitations General Appearance: Alert, No Apparent Distress Ears: Normal External Exam Nose: Normal Inspection Head: Atraumatic, Normocephalic Neck: Normal Inspection Respiratory/Chest: No Respiratory Distress, Lungs Clear, Normal Breath Sounds Cardiovascular: Regular Rate, Rhythm, No Edema, No Murmur GI/Abdominal: Soft, Non-Tender, No Organomegaly, No Mass Extremities: Other (Swelling of her ankles and wrists with tenderness to the joints and muscles of her arms and legs.) Neurological: Alert, Oriented, No Motor/Sensory Deficits Skin Exam: Rash (papular rash to her arms and hands) Course - Vital Signs Last Recorded V/S: Last Vital Signs Temp 97.6 F 10/26/20 07:16 Pulse 78 10/26/20 07:16 Resp 16 10/26/20 07:16 BP 111/75 10/26/20 07:16 Pulse Ox 99 10/26/20 07:16 - Orders/Labs/Meds Orders: Active Orders 24 hr Category Date Time Status Cardiac Monitoring [RC] . DIRECTED Care 10/26/20 06:31 Active Labs: Laboratory Tests 10/26/20 10/26/20 Range/Units 06:45 06:45 WBC 4.43 (3.98-10.04) K/mm3 RBC 4.16 (3.98-5.22) M/mm3 Hgb 8.7 L (11.2-15.7) gm/dl Hct 31.4 L (34.1-44.9) % MCV 75.5 L (79.4-94.8) fl MCH 20.9 L (25.6-32.2) pg MCHC 27.7 L (32.2-35.5) g/dl RDW Std Deviation 53.4 H (36.4-46.3) fL Plt Count 472 H D (182-369) K/mm3 MPV 7.2 L (9.4-12.3) fl Neut % (Auto) 45.3 (34.0-71.1) % Lymph % (Auto) 40.9 (19.3-51.7) % [place] % (Auto) 10.4 (4.7-12.5) % Eos % (Auto) 2.7 (0.7-5.8) Baso % (Auto) 0.5 (0.1-1.2) % Neut # (Auto) 2.01 (1.56-6.13) K/mm3 Lymph # (Auto) 1.81 (1.18-3.74) K/mm3 [place] # (Auto) 0.46 H (0.24-0.36) K/mm3 Eos # (Auto) 0.12 (0.04-0.36) K/mm3 Baso # (Auto) 0.02 (0.01-0.08) K/mm3 Sodium 143 (136-145) mEq/L Potassium 3.7 (3.5-5.1) mEq/L Chloride 106 (98-107) mEq/L Carbon Dioxide 28 (21-32) mEq/L Anion Gap 12.7 (5-15) BUN 7 (7-18) mg/dL Creatinine 0.9 (0.55-1.02) mg/dL Est Cr Clr Drug Dosing 71.03 mL/min Estimated GFR (MDRD) > 60 (>60) mL/min BUN/Creatinine Ratio 7.8 L (14-18) Glucose 99 (74-106) mg/dL Calcium 8.3 L (8.5-10.1) mg/dL Magnesium 2.3 (1.8-2.4) mg/dl Total Bilirubin 0.2 (0.2-1.0) mg/dL AST 9 L (15-37) U/L ALT 14 (14-59) U/L Alkaline Phosphatase 39 L (46-116) U/L C-Reactive Protein 6.4 H* (<1.0) mg/dL Total Protein 7.0 (6.4-8.2) g/dl Albumin 2.2 L (3.4-5.0) g/dl Globulin 4.8 gm/dL Albumin/Globulin Ratio 0.5 L (1-2) Meds: Medications Discontinued Medications Generic Name Dose Route Start Last Admin Trade Name Eliasq PRN Reason Stop Dose Admin Hydrocodone Bitart/Acetaminophen 2 tab 10/26/20 06:32 10/26/20 06:53 [place] 325-5 Mg PO 10/26/20 06:33 2 tab ONETIME ONE Administration - Re-Assessments/Exams Free Text/Narrative Re-Assessment/Exam: 10/26/20 07:24 I ordered some labs and hydrocodone for pain. 10/26/20 07:43 Her WBC was normal. Her Hgb was low at 8.7. The other times she was here her Hgb was in the 9s. Her CMP looks good. Her CRP was elevated at 6.4. I called Willa Frederick NP at [facility] and she recommended trying sulfasalizine and steroid taper and have her follow up with rheumatology. 10/26/20 07:47 The patient did not want the steroids but would try the sulfasalizine and she will make the call to rheumatology. Departure - Departure Time of Disposition: 07:50 Disposition: Home, Self-Care 01 Condition: Good Clinical Impression: Rash Ulcerative colitis Qualifiers: Ulcerative colitis location: unspecified ulcerative colitis location Digestive disease complication type: unspecified complication Qualified Code(s): K51.919 - Ulcerative colitis, unspecified with unspecified complications Joint pain Qualifiers: Joint pain location: unspecified Qualified Code(s): M25.50 - Pain in unsp ecified joint - Discharge Information *PRESCRIPTION DRUG MONITORING PROGRAM REVIEWED*: Not Applicable *COPY OF PRESCRIPTION DRUG MONITORING REPORT IN PATIENT JOAO: Not Applicable Prescriptions: sulfaSALAzine 500 mg PO Q6HR #40 tablet Referrals: Kavita Mondragon MD [Primary Care Provider] - 1 Week Forms: ED Department Discharge, ED Return to Work/School Form Additional Instructions: Take the sulfasalazine 4 times per day for 10 days. Take your other medications as prescribed. Follow up with Willa Frederick on the . Follow up with rheumatology at [facility]. Call to make an appointment. Please return if you are worse. Do not take any motrin or aleve when you are on the sulfasalazine. Sepsis Event Note (ED) - Evaluation Sepsis Screening Result: No Definite Risk - Focused Exam Vital Signs: Vital Signs Temp Pulse Resp BP Pulse Ox 10/26/20 07:16 97.6 F 78 16 111/75 99 10/26/20 06:18 97.5 F 91 17 123/86 100 - My Orders Last 24 Hours: My Active Orders 10/26/20 06:31 Cardiac Monitoring [RC] . DIRECTED - Assessment/Plan Last 24 Hours: My Active Orders 10/26/20 06:31 Cardiac Monitoring [RC] . DIRECTED
[2020-10-26 07:17] VITALS: PULSE 78
[2020-10-26 08:13] VITALS: BP 102/70
== END 2020-10-26 08:14 | disposition home or self-care (01) ==
LOC: JD.ED 06:11
DX: K51.919 Ulcerative colitis, unspecified with unspecified complications (principal); R21 Rash and other nonspecific skin eruption; R79.82 Elevated C-reactive protein (CRP); Z88.5 Allergy status to narcotic agent; Z88.6 Allergy status to analgesic agent; Z79.899 Other long term (current) drug therapy
CPT/HCPCS: 36415; 80053; 83735; 85025; 86140; 99283; A9270; 99284

== ENCOUNTER 2020-10-28 08:54 | Emergency (ER) | payer BC ==
[2020-10-28] MEDS ORDERED: methylPREDNISolone Sodium Succinate 125 MG/2 ML SDV IM ONE (09:42)
[2020-10-28] MEDS ORDERED: HYDROmorphone 1 MG/ML Syringe IM ONE (09:42)
[2020-10-28] MEDS ORDERED: Ketorolac 30 MG/ML SDV IVPUSH ONE (09:54)
--- NOTE | 2020-10-28 09:54 | EDM.PDOC ---
ED HPI GENERAL MEDICAL PROBLEM - General Chief Complaint: General Stated Complaint: BODY PAIN Time Seen by Provider: 10/28/20 09:03 Source of Information: Reports: Patient History Limitations: Reports: No Limitations - History of Present Illness INITIAL COMMENTS - FREE TEXT/NARRATIVE: The patient presents with body aches and joint swelling. She also has a rash. She was seen here a couple days ago by myself. She has a history of ulcerative colitis. She was found to have an infection and she is on cipro and flagyl. She also was on steroids since August and just came off of them a few days ago. She has joint swelling and body aches. The rash is on the arms, legs and hands. She says they do not itch. Some of the rash is tender. She cannot not stand or walk well. She cannot work now. I did call her GI specialist a couple days ago and she wanted her to keep on the cipro and flagyl and add sulfasalazine and prednisone. The patient did not want the prednisone and now she feels worse. She will follow up with her GI specialist on the . Onset: Gradual Duration: Week(s): Location: Reports: Generalized Quality: Reports: Sharp Severity: Severe Improves with: Reports: Immobilization Worsens with: Reports: Heat Therapy Context: Denies: Trauma Associated Symptoms: Reports: No Other Symptoms Generalized Pain Score (Numeric/FACES): 9 - Related Data Allergies Allergy/AdvReac Type Severity Reaction Status Date / Time codeine Allergy Severe Shortness Verified 10/26/20 06:19 of Breath meloxicam Allergy Severe Hives Verified 10/26/20 06:19 Home Meds: Home Meds Ciprofloxacin [Ciprofloxacin HCl] 500 mg PO BID 10/26/20 [History] Pantoprazole [ProTONIX] 40 mg PO BID 10/26/20 [History] metroNIDAZOLE [Metronidazole] 500 mg PO TID 10/26/20 [History] sulfaSALAzine 500 mg PO Q6HR #40 tablet 10/26/20 [Rx] Amoxicillin/Clavulanate K [Augmentin 875-125 MG] 1 tab PO BID #30 tablet 10/28/20 [Rx] Hydrocodone/Acetaminophen [Hydrocodone-Acetamin 5-325 mg] 1 - 2 each PO Q6HR PRN #10 tablet 10/28/20 [Rx] predniSONE [Prednisone] 60 mg PO DAILY #105 tablet 10/28/20 [Rx] Past Medical History - Past Health History Medical/Surgical History: Denies Medical/Surgical History Respiratory History: Reports: Bronchitis, Recurrent Gastrointestinal History: Reports: Inflammatory Bowel Disease, Other (See Below) Other Gastrointestinal History: ulcerative colitis Genitourinary History: Reports: Pyelonephritis 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 - Past Surgical History HEENT Surgical History: Reports: Oral Surgery Other HEENT Surgeries/Procedures: [place] teeth removed x 3 GI Surgical History: Reports: Colonoscopy Female Surgical History: Reports: D&C, Tubal Ligation Social & Family History - Family History Family Medical History: No Pertinent Family History - Tobacco Use Tobacco Use Status *Q: Current Every Day Tobacco User Years of Tobacco use: 1 Packs/Tins Daily: 0.5 - Caffeine Use Caffeine Use: Reports: Coffee, Soda, Tea Other Caffeine Use: 2 cups coffee everyday and 3 12 oz cans of pop a day - Recreational Drug Use Recreational Drug Use: No - Living Situation & Occupation Living situation: Reports: , with Family (3 daughters + 1 grandson) Occupation: Employed ([employer]) ED ROS GENERAL - Review of Systems Review Of Systems: See Below Constitutional: Reports: No Symptoms HEENT: Reports: No Symptoms Respiratory: Reports: No Symptoms Cardiovascular: Reports: No Symptoms Endocrine: Reports: No Symptoms GI/Abdominal: Reports: No Symptoms : Reports: No Symptoms Musculoskeletal: Reports: Muscle Stiffness ED EXAM, GENERAL - Physical Exam Exam: See Below Exam Limited By: No Limitations General Appearance: Alert, No Apparent Distress Ears: Normal External Exam Nose: Normal Inspection Head: Atraumatic, Normocephalic Neck: Normal Inspection Respiratory/Chest: No Respiratory Distress, Lungs Clear, Normal Breath Sounds Cardiovascular: Regular Rate, Rhythm, No Edema, No Murmur GI/Abdominal: Soft, Non-Tender, No Organomegaly, No Mass Extremities: Other (Ankle, knee and wrist swelling with pain upon palpation) Neurological: Alert, Oriented, No Motor/Sensory Deficits Course - Vital Signs Last Recorded V/S: Last Vital Signs Temp 98.1 F 10/28/20 09:04 Pulse 108 H 10/28/20 09:04 Resp 16 10/28/20 09:04 BP 126/92 H 10/28/20 09:04 Pulse Ox 97 03/03/21 09:04 - Orders/Labs/Meds Orders: Active Orders 24 hr Category Date Time Status HYDROmorphone [Dilaudid] Med 10/28/20 09:42 Once 1 mg IM ONETIME ONE methylPREDNISolone Sod Succ [Solu-MEDROL] Med 10/28/20 09:42 Once 125 mg IM ONETIME ONE Medication Orders Hydromorphone HCl (Dilaudid) 1 mg IM ONETIME ONE Stop: 10/28/20 09:43 Methylprednisolone Sodium Succinate (Solu-Medrol) 125 mg IM ONETIME ONE Stop: 10/28/20 09:43 Meds: Medications Generic Name Dose Route Start Last Admin Trade Name Freq PRN Reason Stop Dose Admin Hydromorphone HCl 1 mg 10/28/20 09:42 Dilaudid IM 10/28/20 09:43 ONETIME ONE Methylprednisolone Sodium Succinate 125 mg 10/28/20 09:42 Solu-Medrol IM 10/28/20 09:43 ONETIME ONE - Re-Assessments/Exams Free Text/Narrative Re-Assessment/Exam: 10/28/20 10:04 I ordered solu-medrol 125mg IM and hydrocodone 5mg/325mg X 2 PO. 10/28/20 10:05 I feel this rash may be a reaction to one of the antibiotic like cipro or flagyl. I will switch her to augmentin and get her on steroids. Departure - Departure Time of Disposition: 10:15 Disposition: Home, Self-Care 01 Condition: Good Clinical Impression: Rash Ulcerative colitis Qualifiers: Ulcerative colitis location: unspecified ulcerative colitis location Digestive disease complication type: unspecified complication Qualified Code(s): K51.919 - Ulcerative colitis, unspecified with unspecified complications Joint pain Qualifiers: Joint pain location: unspecified Qualified Code(s): M25.50 - Pain in unspecified joint - Discharge Information *PRESCRIPTION DRUG MONITORING PROGRAM REVIEWED*: Not Applicable *COPY OF PRESCRIPTION DRUG MONITORING REPORT IN PATIENT JOAO: Not Applicable Prescriptions: Amoxicillin/Clavulanate K [Augmentin 875-125 MG] 1 tab PO BID #30 tablet Hydrocodone/Acetaminophen [Hydrocodone-Acetamin 5-325 mg] 1 - 2 each PO Q6HR PRN #10 tablet PRN Reason: Pain predniSONE [Prednisone] 60 mg PO DAILY #105 tablet Referrals: Kavita Mondragon MD [Primary Care Provider] - Forms: ED Department Discharge, ED Return to Work/School Form Additional Instructions: Stop taking the cipro and flagyl. Take the augmentin 2 times per day until you see Willa Frederick. Take the prednisone 60mg for 5 days, then 50mg for 5 days, then 40mg for 5 days, then 30mg for 5 days, then 20mg for 5 days, and then 10mg for 5 days. Follow up with Willa Frederick and please return if you are worse. Sepsis Event Note (ED) - Evaluation Sepsis Screening Result: No Definite Risk - Focused Exam Vital Signs: Vital Signs Temp Pulse Resp BP Pulse Ox 10/28/20 09:04 98.1 F 108 H 16 126/92 H 97 - My Orders Last 24 Hours: My Active Orders 10/28/20 09:42 HYDROmorphone [Dilaudid] 1 mg IM ONETIME ONE methylPREDNISolone Sod Succ [Solu-MEDROL] 125 mg IM ONETIME ONE - Assessment/Plan Last 24 Hours: My Active Orders 10/28/20 09:42 HYDROmorphone [Dilaudid] 1 mg IM ONETIME ONE methylPREDNISolone Sod Succ [Solu-MEDROL] 125 mg IM ONETIME ONE
[2020-10-28] MEDS ORDERED: Acetaminophen/HYDROcodone 325-5 MG Tab PO ONE (09:59)
[2020-10-28 10:37] VITALS: BP 102/60; PULSE 99
== END 2020-10-28 10:30 | disposition home or self-care (01) ==
LOC: JD.ED 08:54
DX: R21 Rash and other nonspecific skin eruption (principal); K51.919 Ulcerative colitis, unspecified with unspecified complications; M25.579 Pain in unspecified ankle and joints of unspecified foot; M25.569 Pain in unspecified knee; M25.539 Pain in unspecified wrist; Z88.5 Allergy status to narcotic agent; Z88.8 Allergy status to other drugs, medicaments and biological substances; Z79.899 Other long term (current) drug therapy; Z72.0 Tobacco use
CPT/HCPCS: 96372; 99283; 99284; A9270-GY; J2930

== ENCOUNTER → 2021-10-27 | Day surgery (SDC) | payer BC ==
[2021-10-27 13:17] VITALS: PULSE 72
[2021-10-27 13:18] VITALS: BP 114/73
== END ==
LOC: JD.IVTHER 10:15
PROVIDERS: ATTEND Family Medicine
DX: K51.018 Ulcerative (chronic) pancolitis with other complication (principal); Z88.5 Allergy status to narcotic agent; Z88.8 Allergy status to other drugs, medicaments and biological substances
CPT/HCPCS: 96365; J3380; J7050